=== PATIENT | male | born 1945 | race Caucasian/White ===

== ENCOUNTER → 2017-06-28 | Outpatient (CLI) | payer MEDICARE ==
--- NOTE | 2017-06-29 12:50 | BD ---
EXAMINATION TYPE: MG DEXA axial skeleton. DATE OF EXAM: 06/28/2017 COMPARISON: 06.11.2014 CLINICAL HISTORY: PT IS A 72 YR OLD MALE: ICD10 CODE: M81.8 OSTEOPOROSIS Height: 66.5 Weight: 166 FRAX RISK QUESTIONS: Alcohol (3 or more units per day): NO Family History (Parent hip fracture): NO Glucocorticoids (More than 3mos): NOT NOW (Ex: prednisone, prednisolone, methylprednisolone, dexamethasone, and hydrocortisone). History of Fracture in Adulthood: YES Secondary Osteoporosis: NO 1. Type 1 Diabetes: NO 2. Hyperthyroidism: NO 3. Menopause before 45: NA 4. Malnutrition: NO 5. Chronic liver disease: NO Rheumatoid Arthritis: NO Current Tobacco Use: NO RISK FACTORS HISTORY OF: Hip Fracture LT HIP AND LOWER LEG When: > 50 YRS OLD Spine Fracture: 5 COMPRESSION FX LUMBAR SPINE When: > 50 YRS OLD Surgery to LT HIP AND LOWER LEG When: > 50 YRS OLD Family History of Osteoporosis: NONE KNOWN Active: NO Diet low in dairy products/other sources of calcium: NO Lost more than 2 inches in height since high school: YES Poor Health: FRAGILE Hyperparathyroidism: NO Adrenal Insufficiency: NO MEDICATIONS: Prednisone or other steroids: STEROIDS FOR MANY YRS IN PAST, NONE NOW Osteoporosis Medications: FOR 3 YRS IN PAST FORTEO INJ., LAST USED 4 YRS AGO Additional Medications: HX OF CHEMO AND RADIATION TREATMENTS, PRILOSEC, CALCIUM AND VIT D Additional History: BONE MARROW TRANSPLANT, 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 System. HX OF COMPRESSION FXS, LUMBAR SPINE X4, SPINE NOT SCANNED Bone mineral density about the R hip (g/cm2): 0.749 T Score values are as follows: -----R Neck: -2.2 -----R Total: -2.1 Bone mineral density has: Increased 3.3% since study of: 06.11.2014 FRAX%'S: THERE IS A 22.8% CHANCE OF MAJOR OSTEOPOROTIC FX AND A 9.0% FOR HIP FX.....PROBABILITY OF FX IN 10 YRS TIME IMPRESSION: Osteopenia (T Score between -2.5 and -1 ) as noted by T score values with regards to the right femur There is slightly increased risk of fracture and the patient may be considered for treatment. Re-Screen 2-5 years. NOTE: T-SCORE=SD OF THE YOUNG ADULT MEAN.
== END ==
LOC: RADBDWWP 14:43
PROVIDERS: ATTEND Family Medicine
DX: M85.851 Other specified disorders of bone density and structure, right thigh (principal)
CPT/HCPCS: 77080

== ENCOUNTER → 2019-12-27 | Day surgery (SDC) | payer MEDICARE ==
[2019-12-24 13:35] VITALS: BMI 25.5
[~2019-12-27] MED LIST: ALFENTANIL 500 MCG/ML 2 ML AMP IV ONE; DEXAMETHASONE SOD PHOSPHATE 10 MG/ML 1 ML VIAL IV ONE; HYDROcodone/APAP 5-325MG 1 EACH TAB PO ONE; HYDROmorphone 0.5 MG/0.5 ML SYRINGE IVP PRN; LACTATED RINGERS 1,000 ML IV ONE; LACTATED RINGERS 1,000 ML IV SCH; LIDOCAINE 1% INJ 10MG/ML (20 ML MDV) ONE; LIDOCAINE 1%-EPI 1:100,000 20 ML VIAL SQ ONE; MIDAZOLAM 2 MG/2 ML VIAL ONE; ONDANSETRON 4 MG/2 ML VIAL IVP ONE; PROPOFOL 10 MG/ML 20 ML VIAL IV ONE; ROCURONIUM BROMIDE 10 MG/ML 5 ML VIAL IV ONE; SUCCINYLCHOLINE CHLORIDE 100 MG/5 ML SYR IV ONE; fentaNYL (PF) 50 MCG/ML 2 ML AMP ONE
[2019-12-27 07:13] LABS: Basophils # (A) 0.1 k/uL (0-0.2); Basophils % (A) 1 %; Eosinophils # (A) 0.6 k/uL (0-0.7); Eosinophils % (A) 4 %; HGB 13.8 gm/dL (13.0-17.5); Lymphocytes # (A) 3.4 k/uL (1.0-4.8); Lymphocytes % (A) 26 %; MCH 30.8 pg (25.0-35.0); MCHC 32.7 g/dL (31.0-37.0); MCV 94.2 fL (80.0-100.0); Mean Platelet Volume 7.9; Monocytes # (A) 1.4 k/uL (0-1.0); Monocytes % (A) 11 %; Neutrophils # (A) 7.3 k/uL (1.3-7.7); Neutrophils % (A) 55 %; Platelet Count 380 k/uL (150-450); RBC 4.46 m/uL (4.30-5.90); RDW 12.5 % (11.5-15.5); WBC 13.2 k/uL (3.8-10.6)
--- NOTE | 2019-12-27 12:09 | XR ---
Limited left elbow HISTORY: Open reduction internal fixation 2 intraoperative C-arm images document the procedure.
--- NOTE | 2019-12-27 12:10 | FL ---
Fluoroscopy HISTORY: Open reduction internal fixation left elbow 47 seconds fluoroscopy time supplied to the referring clinician. 2 intraoperative C-arm images docum ent the procedure. See dictated report from orthopedic surgery.
[2019-12-27 12:41] VITALS: TEMP 96.8
[2019-12-27 13:31] VITALS: RESP 16
[2019-12-27 14:08] VITALS: BP 140/65; PULSE 74
--- NOTE | 2019-12-30 11:22 | P.OP ---
Date of Procedure: 12/27/19 Preoperative Diagnosis: Displaced intra-articular left olecranon fracture Postoperative Diagnosis: Displaced intra-articular left olecranon fracture Procedure(s) Performed: Open reduction and internal fixation of displaced intra-articular left olecranon fracture Implants: Synthes VA-LCP left olecranon plate with locking and cortical screws Anesthesia: KENNETH Surgeon: Randolph Velasco Tile Roofer #1: Karen Narayan Estimated Blood Loss (ml): 20 Condition: stable Disposition: PACU Indications for Procedure: The patient is a pleasant 74-year-old [id number] male who sustained a displaced left olecranon fracture after falling off a plastic bucket. Treatment options (and associated risks and benefits) were discussed in the office. Surgical treatment was recommended. In preop, the patient denied any additional questions or concerns and wished to proceed with surgery. Consent forms were signed. The operative site was confirmed and marked. Description of Procedure: The patient was brought to the operating suite by the anesthesia team. General anesthesia and prophylactic IV antibiotics were administered uneventfully. The patient was positioned prone with the operative limb over a padded bolster. All bony prominences were well-padded. A tourniquet was placed on the left arm which was then prepped and draped in standard, sterile fashion. A timeout was performed, confirming patient identifiers, the operative side, the site and the procedure to be performed: all team members expressed agreement. The limb was exsanguinated with an Esmarch and the tourniquet was inflated. A midline posterior incision was marked over the proximal ulna, curving gently around the tip of the olecranon. The skin was incised sharply and full-thickness skin flaps were elevated, coagulating superficial vessels as needed. The subcutaneous border of the proximal ulna was palpated and the fracture site was identified. The periosteum was sharply incised and reflected to expose the fracture. The primary fracture line was quite oblique with some cortical bone loss medially as well as a paucity of cancellous bone. There was small free fragment of articular cartilage (about 1 cm in diameter), which was displaced and rotated. Its sparse remaining soft tissue attachments gave way easily. It did have a decent amount of subchondral bone still attached. The fragment was wrapped in moist gauze and placed on the back table. The fracture site was opened, irrigated and cleaned of hematoma and fibrous tissue. The articular fragment was carefully reduced into position and held with a dental pick. Two 0.028 crossed K wires were inserted to secure the fragment and were then advanced out the far cortex of the olecranon until flush with the articular surface. A small corticotomy was made in the proximal ulnar me taphysis to permit placement a clamp. The main fracture fragments were manually reduced and held with reduction clamps. However, the oblique fracture pattern led to displacement of the fracture. A 0.062 K wire was inserted into the proximal fragment and advanced up to the fracture line. The proximal fragment was manipulated with reduction clamps until satisfactory reduction was achieved (confirmed on imaging). The K wire was then advanced across the fracture site. An additional 0.054 K wire was inserted obliquely in a crossed fashion to provide rotational stability. The plate was selected based on the fracture pattern and the patient's anatomy. A longitudinal split was made in the triceps to allow the plate to sit against the bone. The muscle and fascia along the proximal ulna metaphysis were sharply elevated to expose the cortex. The plate was provisionally secured with reduction clamps. Provisional position and alignment of the plate and fracture were confirmed on orthogonal imaging. The plate was then reduced to the shaft with a whirlybird. A cortical screw was drilled, measured and inserted to secure the plate distally. Two 2.7 mm cortical screws were drilled perp endicularly across the fracture site. Two additional locking screws were drilled and inserted to secure the plate to the proximal fragment. An additional cortical screw was drilled and inserted to secure the plate to the metaphysis. The whirlybird was removed and replaced with a cortical screw. The bone quality was very good and all the screws obtained excellent purchase. All clamps and K wires were removed. Final x-rays were obtained, confirming fracture reduction and implant position. The screws appeared extra-articular. The elbow was then ranged under live fluoroscopy - no motion of the fracture fragments or fixation construct was appreciated. The elbow articulated smoothly without crepitus or instability. The joint and wound were thoroughly irrigated with normal saline. The triceps split was repaired with #1 Vicryl using interrupted [id number] stitches. The periosteum and fascia were repaired over the plate with interrupted 0 Vicryl sutures. The tourniquet was released after 121 minutes at 250 mmHg. Good hemostasis was obtained with manual pressure. The subcutaneous tissues were closed in layers with interrupted 0 Vicryl & 2-0 Vicryl sutures. The incision was closed with a running subcuticular absorbable suture (3-0 Stratafix). Steri-Strips were applied. Lidocaine with epinephrine was injected into the subcutaneous tissues for adjunct postoperative pain control and hemostasis. A sterile dressing was applied, followed by a long arm posterior splint. All sponge, needle and instrument counts were correct at the end of the case. The patient tolerated the procedure well and was taken to the recovery room in stable condition.
== END | disposition home or self-care (01) ==
LOC: OR 06:20
PROVIDERS: ATTEND Orthopaedic Surgery
DX: S52.032A Displaced fracture of olecranon process with intraarticular extension of left ulna, initial encounter for closed fracture (principal); K21.9 Gastro-esophageal reflux disease without esophagitis; Z79.899 Other long term (current) drug therapy; Z90.49 Acquired absence of other specified parts of digestive tract; Z90.81 Acquired absence of spleen; Z94.81 Bone marrow transplant status; Z85.6 Personal history of leukemia; Z79.82 Long term (current) use of aspirin; Z97.3 Presence of spectacles and contact lenses; W17.89XA Other fall from one level to another, initial encounter
CPT/HCPCS: 93005; 85025; 73070; 24685; C1713; J2250; J1100; J0690; J2405; J2001; J3010; J0330; J2704

== ENCOUNTER 2022-02-01 13:30 | Inpatient (IN) | payer MEDICARE ==
[2022-02-01] MEDS ORDERED: SODIUM CHLORIDE 0.9% 1,000 ML IV STA (15:54)
[2022-02-01 16:28] LABS: Basophils % (A) 0 %; Eosinophils # (A) 0.1 k/uL (0-0.7); Eosinophils % (A) 1 %; HCT 45.6 % (39.0-53.0); HGB 14.6 gm/dL (13.0-17.5); Lymphocytes # (A) 2.8 k/uL (1.0-4.8); Lymphocytes % (A) 24 %; MCH 31.4 pg (25.0-35.0); MCHC 32.1 g/dL (31.0-37.0); MCV 97.9 fL (80.0-100.0); Mean Platelet Volume 8.6; Monocytes # (A) 0.9 k/uL (0-1.0); Monocytes % (A) 8 %; Neutrophils # (A) 7.7 k/uL (1.3-7.7); Neutrophils % (A) 66 %; Platelet Count 428 k/uL (150-450); RBC 4.65 m/uL (4.30-5.90); RDW 12.9 % (11.5-15.5); WBC 11.7 k/uL (3.8-10.6)
[2022-02-01 16:31] LABS: ALT 24 U/L (4-49); African American GFR (CKD) >90 (>60 ml/min/1.73 sqM); Albumin 4.6 g/dL (3.5-5.0); Amylase 107 U/L (30-110); Anion Gap 10 mmol/L; Blood Urea Nitrogen 15 mg/dL (9-20); Calcium 9.5 mg/dL (8.4-10.2); Carbon Dioxide 25 mmol/L (22-30); Chloride 102 mmol/L (98-107); Glucose 100 mg/dL (74-99); Lipase 115 U/L (23-300); Non-African American GFR(CKD) 86 (>60 ml/min/1.73 sqM); Sodium 137 mmol/L (137-145); Total Bilirubin 0.8 mg/dL (0.2-1.3); Total Protein 7.1 g/dL (6.3-8.2)
[2022-02-01 16:34] LABS: Partial Thromboplastin Time 24.7 sec (22.0-30.0); Prothrombin Time 10.5 sec (9.0-12.0)
[2022-02-01 16:37] LABS: AST 39 U/L (17-59); Alkaline Phosphatase 99 U/L (38-126); Potassium 4.9 mmol/L (3.5-5.1)
[2022-02-01 16:41] LABS: Appearance,Urine Clear (Clear); Bilirubin,Urine Negative (Negative); Blood,Urine Negative (Negative); Color,Urine Yellow; Glucose,Urine (UA) Negative (Negative); Ketones,Urine Negative (Negative); Leukocyte Esterase,Urine Negative (Negative); Nitrite,Urine Negative (Negative); Protein,Urine Trace (Negative); Specific Gravity,Urine 1.015 (1.001-1.035); Urobilinogen,Urine <2.0 mg/dL (<2.0)
--- NOTE | 2022-02-01 18:13 | CT ---
EXAMINATION TYPE: CT abdomen pelvis w con DATE OF EXAM: 02/01/2022 COMPARISON: None HISTORY: abd pain CT DLP: 786.9 mGycm Automated exposure control for dose reduction was used. CONTRAST: Performed with IV Contrast, patient injected with 100 mL of Isovue 300. Images obtained from the diaphragm to the floor the pelvis with IV contrast. There is a mild to moderate right pleural effusion. Heart size is normal. No pericardial effusion. Th ere is some atelectasis in the right lower lobe adjacent to the pleural fluid. Left lung base is fitz r. Liver is intact. Spleen is absent. Stomach is intact. There is no pancreatic mass. Gallbladder appear s absent. Common bile duct is enlarged and measures 1.7 cm. No dilation of the intrahepatic bile duct s. There is no adrenal mass. Kidneys show satisfactory contrast opacification. There is no hydronephrosi s. There is a 6 mm calculus lower pole left kidney. There is probably a 3 mm calculus in the posterio r right kidney. Ureters are not dilated. There is no retroperitoneal adenopathy. Bladder distends smo othly. There is no inguinal hernia. There is left hip nailing. Hip joint spaces are fairly normal. Th ere are multiple sigmoid diverticula. No diverticulitis. Bladder distends smoothly. There is osteopenia. There is compression deformities of multiple vertebral and more noticeable at L2 and L1 and T12 up to 60%. There is T11 compression 20%. The bony pelvis is intact. There is left hip nailing. Hip joint spaces are fairly normal. There are multiple dilated air and fluid-filled small bowel loops throughout the abdomen. Appendix ap pears normal. Small bowel measures up to 3.3 cm. Transition point not seen. There is fluid distention of the terminal ileum. There is no ascites or free air. IMPRESSION: Multiple mildly dilated small bowel loops with fluid levels suggestive of ileus. Splenectomy. Right pleural effusion with probably some loculation with right basilar atelectasis. Colonic diverticulosis without diverticulitis. Normal appendix.
[2022-02-01] MEDS ORDERED: SODIUM CHLORIDE 0.9% 1,000 ML IV ONE (18:34)
[2022-02-01] MEDS ORDERED: KETOROLAC 15 MG/ML 1 ML VIAL IVP STA (18:45)
--- NOTE | 2022-02-01 19:46 | ED ---
Abdominal Pain HPI - General Chief Complaint: Abdominal Pain Stated Complaint: abd pain Time Seen by Provider: 02/01/22 15:19 Source: patient Mode of arrival: ambulatory - History of Present Illness Initial Comments: Patient is a 76-year-old male presenting with chief complaint of abdominal cramping. Patient states that symptoms started yesterday after eating dinner, states that the cramping is located primarily in the bilateral lower quadrants. He has felt nauseous but has not vomited. Patient has not eaten today, he has been able to take in fluids. States that the pain is worse when he is up and walking. Patient had one episode of diarrhea. No hematochezia or melena. Patient has a history of bowel obstruction. Denies any fever, chills, chest pain, shortness of breath, palpitations, weakness, dysuria, hematuria, urgency, frequency. - Related Data Home Medications Medication Instructions Recorded Confirmed Aspirin 325 mg PO DAILY 12/24/19 02/01/22 Multivit-Min/FA/Lycopen/Lutein 1 tab PO DAILY 12/24/19 02/01/22 [Centrum Silver Tablet] Omeprazole [PriLOSEC] 20 mg PO DAILY 12/24/19 02/01/22 Penicillin V Potassium [Pen Vee K] 250 mg PO BID 12/24/19 02/01/22 Calcium Carbonate [Calcium] 600 mg PO DAILY 02/01/22 02/01/22 Dorzolamide/Timolol/Pf 1 drop BOTH EYES BID 02/01/22 02/01/22 [Dorzolamide 2%-Timolol 0.5%] Erythromycin Ophth Oint [Romycin 0.25 inch RIGHT EYE BID 02/01/22 02/01/22 Ophth Oint] Latanoprost/Pf [Latanoprost 0.005% 1 drop BOTH EYES HS 02/01/22 02/01/22 Eye Drop] prednisoLONE ACETATE 1% OPHTH 1 drop LEFT EYE DAILY 02/01/22 02/01/22 [Pred Forte 1%] prednisoLONE ACETATE 1% OPHTH 2 drops RIGHT EYE DAILY 02/01/22 02/01/22 [Pred Forte 1%] Allergies Allergy/AdvReac Type Severity Reaction Status Date / Time No Known Allergies Allergy Verified 02/01/22 17:44 Review of Systems ROS Statement: Those systems with pertinent positive or pertinent negative responses have been documented in the HPI. ROS Other: All systems not noted in ROS Statement are negative. 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, leukemia, fx left elbow 12/23/19 History of Any Multi-Drug Resistant Organisms: None Reported Past Surgical History: Bowel Resection, Cholecystectomy, Orthopedic Surgery Additional Past Surgical History / Comment(s): bone marrow transplant 2006, spleenectomy, surgery left hip after injury Past Anesthesia/Blood Transfusion Reactions: No Reported Reaction Past Psychological History: No Psychological Hx Reported Past Alcohol Use History: Daily Past Drug Use History: None Reported - Past Family History Father Family Medical History: Cancer Mother Family Medical History: Cancer Brother(s) Family Medical History: Cancer General Exam Limitations: no limitations General appearance: alert, in no apparent distress Head exam: Present: atraumatic, normocephalic, normal inspection Eye exam: Present: normal appearance, EOMI. Absent: scleral icterus Neck exam: Present: normal inspection Respiratory exam: Present: normal lung sounds bilaterally. Absent: respiratory distress, wheezes, rales, rhonchi, stridor Cardiovascular Exam: Present: regular rate, normal rhythm, normal heart sounds. Absent: systolic murmur, diastolic murmur, rubs, gallop, clicks GI/Abdominal exam: Present: soft, tenderness (Diffuse), normal bowel sounds. Absent: distended, guarding, rebound, rigid Neurological exam: Present: alert, oriented X3, CN II-XII intact Psychiatric exam: Present: normal affect, normal mood Skin exam: Present: warm, dry, intact, normal color. Absent: rash Course Vital Signs 02/01/22 02/01/22 14:13 20:53 Temperature 97.7 F 97.6 F Pulse Rate 73 81 Respiratory 18 18 Rate Blood Pressure 121/76 158/69 O2 Sat by Pulse 97 98 Oximetry Medical Decision Making - Medical Decision Making Patient is a 76-year-old male presenting with chief complaint of lower abdominal cramping. Symptoms began yesterday after eating dinner. He has had one episode of diarrhea. On examination there is diffuse abdominal tenderness, it is soft and nondistended. Lab work shows slight leukocytosis with WBC of 11.7. CT of the abdomen and pelvis shows ileus. There is also colonic diverticulosis without diverticulitis. Normal appendix. Patient was given IV fluids and Toradol. Patient states that once he gets up and walks around the pain returns, and is concerned that if discharged home he may report back to ER due to the pain. Patient would benefit from observation stay with fluids and pain control. I spoke with Rashawn Sheridan from [facility] agreed to admit the patient. Patient was agreeable to the plan. I discussed this case with my attending Dr. Santoyo. - Lab Data Result diagrams: 02/01/22 16:02 02/01/22 16:02 Lab Results 02/01/22 02/01/22 02/01/22 Range/Units 16:02 16:02 16:02 WBC 11.7 H (3.8-10.6) k/uL RBC 4.65 (4.30-5.90) m/uL Hgb 14.6 (13.0-17.5) gm/dL Hct 45.6 (39.0-53.0) % MCV 97.9 (80.0-100.0) fL MCH 31.4 (25.0-35.0) pg MCHC 32.1 (31.0-37.0) g/dL RDW 12.9 (11.5-15.5) % Plt Count 428 (150-450) k/uL MPV 8.6 Neutrophils % 66 % Lymphocytes % 24 % Monocytes % 8 % Eosinophils % 1 % Basophils % 0 % Neutrophils # 7.7 (1.3-7.7) k/uL Lymphocytes # 2.8 (1.0-4.8) k/uL Monocytes # 0.9 (0-1.0) k/uL Eosinophils # 0.1 (0-0.7) k/uL Basophils # 0.0 (0-0.2) k/uL PT 10.5 (9.0-12.0) sec INR 1.0 (<1.2) APTT 24.7 (22.0-30.0) sec Sodium 137 (137-145) mmol/L Potassium 4.9 (3.5-5.1) mmol/L Chloride 102 (98-107) mmol/L Carbon Dioxide 25 (22-30) mmol/L Anion Gap 10 mmol/L BUN 15 (9-20) mg/dL Creatinine 0.83 (0.66-1.25) mg/dL Est GFR (CKD-EPI)AfAm >90 (>60 ml/min/1.73 sqM) Est GFR (CKD-EPI)NonAf 86 (>60 ml/min/1.73 sqM) Glucose 100 H (74-99) mg/dL Plasma Lactic Acid Nrom (0.7-2.0) mmol/L Calcium 9.5 (8.4-10.2) mg/dL Total Bilirubin 0.8 (0.2-1.3) mg/dL AST 39 (17-59) U/L ALT 24 (4-49) U/L Alkaline Phosphatase 99 (38-126) U/L Troponin I (0.000-0.034) ng/mL Total Protein 7.1 (6.3-8.2) g/dL Albumin 4.6 (3.5-5.0) g/dL Amylase 107 (30-110) U/L Lipase 115 (23-300) U/L Urine Color Urine Appearance (Clear) Urine pH (5.0-8.0) Ur Specific Marble (1.001-1.035) Urine Protein (Negative) Urine Glucose (UA) (Negative) Urine Ketones (Negative) Urine Blood (Negative) Urine Nitrite (Negative) Urine Bilirubin (Negative) Urine Urobilinogen (<2.0) mg/dL Ur Leukocyte Esterase (Negative) 02/01/22 02/01/22 02/01/22 Range/Units 16:02 16:02 16:26 WBC (3.8-10.6) k/uL RBC (4.30-5.90) m/uL Hgb (13.0-17.5) gm/dL Hct (39.0-53.0) % MCV (80.0-100.0) fL MCH (25.0-35.0) pg MCHC (31.0-37.0) g/dL RDW (11.5-15.5) % Plt Count (150-450) k/uL MPV Neutrophils % % Lymphocytes % % Monocytes % % Eosinophils % % Basophils % % Neutrophils # (1.3-7.7) k/uL Lymphocytes # (1.0-4.8) k/uL Monocytes # (0-1.0) k/uL Eosinophils # (0-0.7) k/uL Basophils # (0-0.2) k/uL PT (9.0-12.0) sec INR (<1.2) APTT (22.0-30.0) sec Sodium (137-145) mmol/L Potassium (3.5-5.1) mmol/L Chloride (98-107) mmol/L Carbon Dioxide (22-30) mmol/L Anion Gap mmol/L BUN (9-20) mg/dL Creatinine (0.66-1.25) mg/dL Est GFR (CKD-EPI)AfAm (>60 ml/min/1.73 sqM) Est GFR (CKD-EPI)NonAf (>60 ml/min/1.73 sqM) Glucose (74-99) mg/dL Plasma Lactic Acid Norm 1.2 (0.7-2.0) mmol/L Calcium (8.4-10.2) mg/dL Total Bilirubin (0.2-1.3) mg/dL AST (17-59) U/L ALT (4-49) U/L Alkaline Phosphatase (38-126) U/L Troponin I <0.012 (0.000-0.034) ng/mL Total Protein (6.3-8.2) g/dL Albumin (3.5-5.0) g/dL Amylase (30-110) U/L Lipase (23-300) U/L Urine Color Yellow Urine Appearance Clear (Clear) Urine pH 6.0 (5.0-8.0) Ur Specific Marble 1.015 (1.001-1.035) Urine Protein Trace H (Negative) Urine Glucose (UA) Negative (Negative) Urine Ketones Negative (Negative) Urine Blood Negative (Negative) Urine Nitrite Negative (Negative) Urine Bilirubin Negative (Negative) Urine Urobilinogen <2.0 (<2.0) mg/dL Ur Leukocyte Esterase Negative (Negative) Disposition Clinical Impression: Ileus Disposition: ADMITTED IP TO THIS [facility] Condition: Good Time of Disposition: 19:46 Decision to Admit Reason: Admit from EC Decision Date: 02/01/22 Decision Time: 19:46
[2022-02-01] MEDS ORDERED: KETOROLAC 15 MG/ML 1 ML VIAL IVP PRN (20:09)
[2022-02-01] MEDS ORDERED: NALOXONE 0.4 MG/ML 1 ML VIAL IV PRN (20:09)
[2022-02-01] MEDS ORDERED: MORPHINE SULFATE 4 MG/ML SYRINGE IV PRN (20:09)
[2022-02-02] MEDS: SODIUM CHLORIDE 0.9% 1,000 ML IV SCH ×3 (07:35→15:41)
[2022-02-02] MEDS ORDERED: prednisoLONE ACETATE 1% OPHTH DROPS 5 ML BTL LEFT EYE SCH (09:00)
[2022-02-02] MEDS: DORZOLAMIDE-TIMOLOL 2.23%/0.68 10ML BTL BOTH EYES SCH ×2 (10:00→20:22)
[2022-02-02] MEDS: prednisoLONE ACETATE 1% OPHTH DROPS 5 ML BTL RIGHT EYE SCH (10:01)
[2022-02-02] MEDS: ERYTHROMYCIN 5 MG/GM OPHTH OINT 3.5 GM TUBE RIGHT EYE SCH ×2 (10:01→20:24)
--- NOTE | 2022-02-02 13:59 | P.GSCN ---
History of Present Illness Consult date: 02/02/22 History of present illness: CHIEF COMPLAINT: Abdominal pain HISTORY OF PRESENT ILLNESS: This is a 76-year-old male who presented to the hospital with complaints of lower abdominal pain. He reports pain started after he ate [place] salad for dinner. He reports the pain got up to about 8 out of 10. Patient reports that his bowel movements have been normal. And then last night around 9:00 he started having multiple episodes of diarrhea. This morning his pain is completely resolved. He has been tolerating clear liquids. Patient does have history of 2 other bowel obstructions. He did require a bowel resection at [facility] about 15 years ago and then 12 years ago had recurrent spelled suction that was treated conservatively. Other surgical history includes cholecystectomy and splenectomy. 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 He had the splenectomy for the transplant. He denies any fever chills or sweats. Computed tomography scan abdomen and pelvis had shown multiple mildly dilated small bowel loops with fluid levels suggestive of ileus. Patient seen and examined with Dr. Forbes PAST MEDICAL HISTORY: See list. PAST SURGICAL HISTORY: As stated above MEDICATIONS: See list. ALLERGIES: See list. SOCIAL HISTORY: No illicit drug use. REVIEW OF SYSTEMS: CONSTITUTIONAL: Denies fever or chills. HEENT: Denies blurred vision, vision changes, or eye pain. Denies hemoptysis CARDIOVASCULAR: Denies chest pain or pressure. RESPIRATORY: No shortness of breath. GASTROINTESTINAL: See HPI for pertinent findings HEMATOLOGIC: Denies bleeding disorders. GENITOURINARY: Denies any blood in urine or increased urinary frequency. SKIN: Denies pruitis. Denies rash. PHYSICAL EXAM: VITAL SIGNS: Reviewed GENERAL: Well-developed in no acute distress. HEENT: No sclera icterus. Extraocular movements grossly intact. Moist buccal mucosa. Head is atraumatic, normocephalic. No nasal drainage. ABDOMEN: Soft. Nondistended. Nontender NEUROLOGIC: Alert and oriented. Cranial nerves II through XII grossly intact. LABORATORY DATA: WBC 11.7 hemoglobin 14.6 platelets 428 INR 1.0 Sodium is 137 potassium is 4.9 BUN is 15 creatinine 0.83 Lactic acid 1.2 LFTs normal Troponin negative Lipase 115 Urinalysis negative for infection IMAGING: Computed tomography scan abdomen and pelvis had shown multiple mildly dilated small bowel loops with fluid levels suggestive of ileus. Splenectomy. Right pleural effusion with probably some loculation with right basilar atelectasis. Colonic diverticulosis without diverticulitis. Normal appendix. ASSESSMENT: 1. Abdominal pain likely due to ileus 2. Prior history of bowel obstructions when treated conservatively and 1 requiring surgical intervention PLAN: -No surgical intervention planned -Advance diet to full liquids -Continue supportive care -Continue to monitor Thank you for this consultation Physician Mill Representative note has been reviewed by physician. Signing provider agrees with the documented findings, assessment, and plan of care. 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, leukemia, fx left elbow 12/23/19 History of Any Multi-Drug Resistant Organisms: None Reported Past Surgical History: Bowel Resection, Cholecystectomy, Orthopedic Surgery Additional Past Surgical History / Comment(s): bone marrow transplant 2006, spleenectomy, surgery left hip after injury Past Anesthesia/Blood Transfusion Reactions: No Reported Reaction Past Psychological History: No Psychological Hx Reported Smoking Status: Never smoker Past Alcohol Use History: Daily Additional Past Alcohol Use History / Comment(s): 1 beer daily Past Drug Use History: None Reported - Past Family History Father Family Medical History: Cancer Mother Family Medical History: Cancer Brother(s) Family Medical History: Cancer Medications and Allergies Home Medications Medication Instructions Recorded Confirmed Type Aspirin 325 mg PO DAILY 12/24/19 02/01/22 History Multivit-Min/FA/Lycopen/Lutein 1 tab PO DAILY 12/24/19 02/01/22 History [Centrum Silver Tablet] Omeprazole [PriLOSEC] 20 mg PO DAILY 12/24/19 02/01/22 History Penicillin V Potassium [Pen Vee K] 250 mg PO BID 12/24/19 02/01/22 History Calcium Carbonate [Calcium] 600 mg PO DAILY 02/01/22 02/01/22 History Dorzolamide/Timolol/Pf 1 drop BOTH EYES BID 02/01/22 02/01/22 History [Dorzolamide 2%-Timolol 0.5%] Erythromycin Ophth Oint [Romycin 0.25 inch RIGHT EYE BID 02/01/22 02/01/22 History Ophth Oint] Latanoprost/Pf [Latanoprost 0.005% 1 drop BOTH EYES HS 02/01/22 02/01/22 History Eye Drop] prednisoLONE ACETATE 1% OPHTH 1 drop LEFT EYE DAILY 02/01/22 02/01/22 History [Pred Forte 1%] prednisoLONE ACETATE 1% OPHTH 2 drops RIGHT EYE DAILY 02/01/22 02/01/22 History [Pred Forte 1%] Allergies Allergy/AdvReac Type Severity Reaction Status Date / Time No Known Allergies Allergy Verified 02/01/22 17:44 Surgical - Exam Vital Signs Temp Pulse Resp BP Pulse Ox 97.7 F 73 18 121/76 97 02/01/22 14:13 02/01/22 14:13 02/01/22 14:13 02/01/22 14:13 02/01/22 14:13 Results - Labs 02/01/22 16:02 02/01/22 16:02 Abnormal Lab Results - Last 24 Hours (Table) 02/01/22 02/01/22 02/01/22 Range/Units 16:02 16:02 16:26 WBC 11.7 H (3.8-10.6) k/uL Glucose 100 H (74-99) mg/dL Urine Protein Trace H (Negative) Diabetes panel 02/01/22 Range/Units 16:02 Sodium 137 (137-145) mmol/L Potassium 4.9 (3.5-5.1) mmol/L Chloride 102 (98-107) mmol/L Carbon Dioxide 25 (22-30) mmol/L BUN 15 (9-20) mg/dL Creatinine 0.83 (0.66-1.25) mg/dL Glucose 100 H (74-99) mg/dL Calcium 9.5 (8.4-10.2) mg/dL AST 39 (17-59) U/L ALT 24 (4-49) U/L Alkaline Phosphatase 99 (38-126) U/L Total Protein 7.1 (6.3-8.2) g/dL Albumin 4.6 (3.5-5.0) g/dL Calcium panel 02/01/22 Range/Units 16:02 Calcium 9.5 (8.4-10.2) mg/dL Albumin 4.6 (3.5-5.0) g/dL Pituitary panel 02/01/22 Range/Units 16:02 Sodium 137 (137-145) mmol/L Potassium 4.9 (3.5-5.1) mmol/L Chloride 102 (98-107) mmol/L Carbon Dioxide 25 (22-30) mmol/L BUN 15 (9-20) mg/dL Creatinine 0.83 (0.66-1.25) mg/dL Glucose 100 H (74-99) mg/dL Calcium 9.5 (8.4-10.2) mg/dL Adrenal panel 02/01/22 Range/Units 16:02 Sodium 137 (137-145) mmol/L Potassium 4.9 (3.5-5.1) mmol/L Chloride 102 (98-107) mmol/L Carbon Dioxide 25 (22-30) mmol/L BUN 15 (9-20) mg/dL Creatinine 0.83 (0.66-1.25) mg/dL Glucose 100 H (74-99) mg/dL Calcium 9.5 (8.4-10.2) mg/dL Total Bilirubin 0.8 (0.2-1.3) mg/dL AST 39 (17-59) U/L ALT 24 (4-49) U/L Alkaline Phosphatase 99 (38-126) U/L Total Protein 7.1 (6.3-8.2) g/dL Albumin 4.6 (3.5-5.0) g/dL
--- NOTE | 2022-02-02 14:06 | P.CONS ---
History of Present Illness - Reason for Consult Consult date: 02/02/22 Diarrhea, ileus Requesting physician: Akil Banda - Chief Complaint Abdominal pain - History of Present Illness This is a pleasant 76-year-old male who presented to the emergency department yesterday with complaints of severe abdominal pain. States the pain started Tue and continued into Tuesday so he came to the emergency department for further evaluation. Has a past medical history including leukemia, GERD, and previous small bowel obstruction with resection in 2006. States he had no associated nausea or vomiting. Diarrhea started yesterday and since yesterday evening he still had 8 loose bowel movements which she states now her more watery, nonbloody. Only 1-2 bowel movements today he states no previous history of diarrhea. Denies any new medications, no rectal bleeding, and continues with no nausea or vomiting. States abdominal pain has improved significantly today and rates it a 1. Last colonoscopy was greater than 5 years ago. Gastroenterology was consulted for diarrhea, ileus. Gen. surgery also on consult for possible small bowel obstruction. Labs: WBC 11.7 hemoglobin 14.6 hematocrit 45.6 platelet count 428,019 and 1.0 Sodium 137 potassium 4.9 BUN 15 creatinine 0.8 glucose 100 total bilirubin 0.8 AST 39 ALT 24 alkaline phosphatase [address] abdomen and pelvis: Multiple mildly dilated small bowel loops with fluid levels suggestive of ileus. Splenectomy. Right pleural effusion with probab some loculation with right basilar atelectasis. Colonic diverticulosis without diverticulitis. Normal appendix.ly Review of Systems REVIEW OF SYSTEMS: CARDIOPULMONARY: No chest pain or shortness of breath. Gastrointestinal: Diffuse abdominal pain, mostly in bilateral lower quadrants. Now improved. No nausea or vomiting. No hematemesis, coffee-ground emesis. No rectal bleeding, or melena. Diarrhea. GENITOURINARY: No dysuria or hematuria. MUSCULOSKELETAL: Reports normal range of motion. SKIN: No rashes. No jaundice. ENDOCRINE: No chills, fevers. No excessive weight gain or loss. No polydipsia or polyuria. PSYCHIATRIC: Unremarkable. NEUROLOGY: No change in mental status. Denies dizziness, headache. ENT: Vision unremarkable. CONSTITUTIONAL: No recent weight loss. No fever, chills, night sweats. 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, leukemia, fx left elbow 12/23/19 History of Any Multi-Drug Resistant Organisms: None Reported Past Surgical History: Bowel Resection, Cholecystectomy, Orthopedic Surgery Additional Past Surgical History / Comment(s): bone marrow transplant 2006, spleenectomy, surgery left hip after injury Past Anesthesia/Blood Transfusion Reactions: No Reported Reaction Past Psychological History: No Psychological Hx Reported Smoking Status: Never smoker Past Alcohol Use History: Daily Additional Past Alcohol Use History / Comment(s): 1 beer daily Past Drug Use History: None Reported - Past Family History Father Family Medical History: Cancer Mother Family Medical History: Cancer Brother(s) Family Medical History: Cancer Medications and Allergies Home Medications Medication Instructions Recorded Confirmed Type Aspirin 325 mg PO DAILY 12/24/19 02/01/22 History Multivit-Min/FA/Lycopen/Lutein 1 tab PO DAILY 12/24/19 02/01/22 History [Centrum Silver Tablet] Omeprazole [PriLOSEC] 20 mg PO DAILY 12/24/19 02/01/22 History Penicillin V Potassium [Pen Vee K] 250 mg PO BID 12/24/19 02/01/22 History Calcium Carbonate [Calcium] 600 mg PO DAILY 02/01/22 02/01/22 History Dorzolamide/Timolol/Pf 1 drop BOTH EYES BID 02/01/22 02/01/22 History [Dorzolamide 2%-Timolol 0.5%] Erythromycin Ophth Oint [Romycin 0.25 inch RIGHT EYE BID 02/01/22 02/01/22 History Ophth Oint] Latanoprost/Pf [Latanoprost 0.005% 1 drop BOTH EYES HS 02/01/22 02/01/22 History Eye Drop] prednisoLONE ACETATE 1% OPHTH 1 drop LEFT EYE DAILY 02/01/22 02/01/22 History [Pred Forte 1%] prednisoLONE ACETATE 1% OPHTH 2 drops RIGHT EYE DAILY 02/01/22 02/01/22 History [Pred Forte 1%] Allergies Allergy/AdvReac Type Severity Reaction Status Date / Time No Known Allergies Allergy Verified 02/01/22 17:44 Physical Exam Vitals: Vital Signs Temp Pulse Pulse Resp BP BP Pulse Ox 02/02/22 07:22 97.5 F L 64 20 114/74 97 02/02/22 02:00 97.7 F 72 17 137/77 97 02/02/22 00:07 78 18 120/74 98 02/01/22 20:53 97.6 F 81 18 158/69 98 02/01/22 14:13 97.7 F 73 18 121/76 97 Intake and Output 02/01/22 02/02/22 02/02/22 22:59 06:59 14:59 Intake Total 400 Balance 400 Intake: Intake, IV Titration 300 Amount Sodium Chloride 0.9% 1, 300 000 ml @ 75 mls/hr IV . [id number] [facility] Rx#:[id number] Oral 100 Other: Voiding Method Toilet # Voids 3 # Bowel Movements 1 Weight 69.853 kg General appearance: The patient is alert, oriented, appears in no acute distress. HET: Head is normocephalic and atraumatic. Conjunctiva pink. Sclera anicteric. Neck: Supple without lymphadenopathy. Trachea midline. Heart: S1 S2. Regular rate and rhythm. Lungs: Clear to auscultation. Abdomen: Soft, nontender, nondistended with bowel sounds. No guarding or rigidity. Skin: No rashes. No jaundice. Extremities: Normal skin color and turgor. No pedal edema. Neurological: No focal deficits. Alert and oriented x3. Results CBC & Chem 7: 02/01/22 16:02 02/01/22 16:02 Labs: Abnormal Lab Results - Last 24 Hours (Table) 02/01/22 02/01/22 02/01/22 Range/Units 16:02 16:02 16:26 WBC 11.7 H (3.8-10.6) k/uL Glucose 100 H (74-99) mg/dL Urine Protein Trace H (Negative) Comments: CT abdomen and pelvis: Multiple mildly dilated small bowel loops with fluid levels suggestive of ileus. Splenectomy. Right pleural effusion with probab some loculation with right basilar atelectasis. Colonic diverticulosis without diverticulitis. Normal appendix.ly Assessment and Plan (1) Diarrhea Narrative/Plan: 76-year-old male who presented to the emergency department yesterday with complaints of severe abdominal pain. States pain started on Tuesday improved now. However yesterday he started having multiple loose bowel movements. He states that initially they were soft but had turned into watery stools. Nonbloody. No previous history of diarrhea. He does have a history of a small bowel obstruction with bowel resection 2006. Denies any recent antibiotics or new medications. Abdominal pain has improved and states it is a 1 at this time. He's been afebrile. CT of the abdomen and pelvis showed multiple loops of small bowel dilated with fluid levels suggestive of ileus. Diarrhea is improving. Abdominal pain improved. Stool studies ordered. No plans and endoscopic evaluation. Continue to treat symptomatically. Current Visit: Yes Status: Acute Code(s): R19.7 - DIARRHEA, UNSPECIFIED SNOMED Code(s): 65174873 (2) Ileus Current Visit: Yes Status: Acute Code(s): K56.7 - ILEUS, UNSPECIFIED SNOMED Code(s): 255532419 Plan: 1. Continue symptomatic and supportive care 2. Diet per general surgery recommendations 3. Stool studies ordered 4. Unclear etiology of diarrhea, likely related to contrast/medications. However infectious diarrhea needs to be considered. Stool studies ordered 5. No plans on endoscopic evaluation. Thank you for this consultation. Thank you for allowing us to participate in the care of the patient, the GI service will sign off, gastroenterology will not be available at the hospital this weekend and through next week. If further evaluation by gastroenterology is required the patient will need transfer as per the primary team's discretion. Dr. Kirk Larkin I agree with the dictator's note, documented as a scribe by Anel Bowling.
--- NOTE | 2022-02-02 18:37 | P.HPIM ---
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 He denies any nausea vomiting but reports diarrhea all night about 8 bowel sounds movement last night with no blood, last bowel movement was 7:00 t his morning. Patient denies any chest pain or dyspnea He denies smoking but drinks 1-2 beers about 4 days a week, no illicit drugs. He states that he follows up with Him on [facility] for His Chronic Leukemia but since Covid He Stopped Following up, Patient Denies Any Specific Symptoms Recorded. Also Patient States That He Is Following up with [facility] for Right Corneal Ulcers for More Than a Year, His [facility] Is Dr. Nguyen Was Recently Seen Him A Few Days Ago, He Is on Multiple Eyedrops, Please Refer to Medication List. Also his rn labor and delivery referred him to another colleague as an outpatient. Hemodynamically stable and patient is afebrile. That showed mild leukocytosis of 11.7, rest of CBC, BMP, liver enzymes and urine analysis and troponin are unremarkable. EKG showing normal sinus rhythm at [address]-T changes and sinus arrhythmia CT of the abdomen and pelvis with contrast: Mild to moderate right pleural effusion. Atelectasis., 6 mm calculus in the left lower kidney pole. Multiple dilated air and fluid small bowel loops throughout the abdomen. Patient given pain medication and IV fluids, currently on liquid diet Review of Systems CONSTITUTIONAL: No fever, no malaise, no fatigue. HEENT: No recent visual problems or hearing problems. Denied any sore throat. CARDIOVASCULAR: No orthopnea, PND, no palpitations, no syncope. PULMONARY: No shortness of breath, no cough, no hemoptysis. GASTROINTESTINAL: No diarrhea, no nausea, no vomiting, no abdominal pain. Normoactive bowel sounds. NEUROLOGICAL: No headaches, no weakness, no numbness. HEMATOLOGICAL: Denies any bleeding or petechiae. GENITOURINARY: Denies any burning micturition, frequency, or urgency. MUSCULOSKELETAL/RHEUMATOLOGICAL: Denies any joint pain, swelling, or any muscle pain. ENDOCRINE: Denies any polyuria or polydipsia. 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, leukemia, fx left elbow 12/23/19 History of Any Multi-Drug Resistant Organisms: None Reported Past Surgical History: Bowel Resection, Cholecystectomy, Orthopedic Surgery Additional Past Surgical History / Comment(s): bone marrow transplant 2006, spleenectomy, surgery left hip after injury Past Anesthesia/Blood Transfusion Reactions: No Reported Reaction Past Psychological History: No Psychological Hx Reported Smoking Status: Never smoker Past Alcohol Use History: Daily Additional Past Alcohol Use History / Comment(s): 1 beer daily Past Drug Use History: None Reported - Past Family History Father Family Medical History: Cancer Mother Family Medical History: Cancer Brother(s) Family Medical History: Cancer Medications and Allergies Home Medications Medication Instructions Recorded Confirmed Type Aspirin 325 mg PO DAILY 12/24/19 02/01/22 History Multivit-Min/FA/Lycopen/Lutein 1 tab PO DAILY 12/24/19 02/01/22 History [Centrum Silver Tablet] Omeprazole [PriLOSEC] 20 mg PO DAILY 12/24/19 02/01/22 History Penicillin V Potassium [Pen Vee K] 250 mg PO BID 12/24/19 02/01/22 History Calcium Carbonate [Calcium] 600 mg PO DAILY 02/01/22 02/01/22 History Dorzolamide/Timolol/Pf 1 drop BOTH EYES BID 02/01/22 02/01/22 History [Dorzolamide 2%-Timolol 0.5%] Erythromycin Ophth Oint [Romycin 0.25 inch RIGHT EYE BID 02/01/22 02/01/22 History Ophth Oint] Latanoprost/Pf [Latanoprost 0.005% 1 drop BOTH EYES HS 02/01/22 02/01/22 History Eye Drop] prednisoLONE ACETATE 1% OPHTH 1 drop LEFT EYE DAILY 02/01/22 02/01/22 History [Pred Forte 1%] prednisoLONE ACETATE 1% OPHTH 2 drops RIGHT EYE DAILY 02/01/22 02/01/22 History [Pred Forte 1%] Allergies Allergy/AdvReac Type Severity Reaction Status Date / Time No Known Allergies Allergy Verified 02/01/22 17:44 Physical Exam Vitals: Vital Signs Temp Pulse Pulse Resp BP BP Pulse Ox 02/02/22 07:22 97.5 F L 64 20 114/74 97 02/02/22 02:00 97.7 F 72 17 137/77 97 02/02/22 00:07 78 18 120/74 98 02/01/22 20:53 97.6 F 81 18 158/69 98 02/01/22 14:13 97.7 F 73 18 121/76 97 Intake and Output 02/01/22 02/02/22 02/02/22 22:59 06:59 14:59 Intake Total 400 Balance 400 Intake: Intake, IV Titration 300 Amount Sodium Chloride 0.9% 1, 300 000 ml @ 75 mls/hr IV . [id number] Rx#:[id number] Oral 100 Other: # Voids 3 # Bowel Movements 1 Weight 69.853 kg GENERAL: The patient is alert and oriented x3, not in any acute distress. Well developed, well nourished. HEENT: Pupils are round and equally reacting to light. EOMI. No scleral icterus. No conjunctival pallor. Normocephalic, atraumatic. No pharyngeal erythema. No thyromegaly. CARDIOVASCULAR: S1 and S2 present. No murmurs, rubs, or gallops. PULMONARY: Chest is clear to auscultation, no wheezing or crackles. ABDOMEN: Soft, nontender, nondistended, normoactive bowel sounds. No palpable organomegaly. MUSCULOSKELETAL: No joint swelling or deformity. EXTREMITIES: No cyanosis, clubbing, or pedal edema. NEUROLOGICAL: Gross neurological examination did not reveal any focal deficits. SKIN: No rashes. No petechiae Results CBC & Chem 7: 02/01/22 16:02 02/01/22 16:02 Labs: Abnormal Lab Results - Last 24 Hours (Table) 02/01/22 02/01/22 02/01/22 Range/Units 16:02 16:02 16:26 WBC 11.7 H (3.8-10.6) k/uL Glucose 100 H (74-99) mg/dL Urine Protein Trace H (Negative) Thrombosis Risk Factor Assmnt - Choose All That Apply Each Risk Factor Represents 3 Points: Age 75 years or older Thrombosis Risk Factor Assessment Total Risk Factor Score: 3 Thrombosis Risk Factor Assessment Level: Moderate Risk Assessment and Plan Assessment: Small bowel obstruction versus ileus History of bowel obstruction in 2007 status post bowel resection. 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 He. With rn labor and delivery as an outpatient Plan: This is a pleasant 76 years old male who presents with ileus Continue with bowel rest, normal saline and pain management Surgery team consult Hold aspirin Check for C. diff, stool culture and WBC. Check procalcitonin GI team consult Labs and medication were reviewed.. Continue same treatment. Continue with symptomatic treatment. Resume home medication. Monitor lytes and vitals. DVT and GI prophylaxis. Further recommendations depends on the clinical course of the patient DVT prophylaxis: Subcutaneous heparin GI Prophylaxis: Pepcid PT/OT: Pending Prognosis is guarded
[2022-02-02] MEDS: FAMOTIDINE 20 MG/2 ML VIAL IV SCH (20:21)
[2022-02-02] MEDS: HEPARIN SODIUM,PORCINE/PF 5,000 UNIT/0.5 ML SYRINGE SQ SCH (20:21)
[2022-02-02] MEDS: prednisoLONE ACETATE 1% OPHTH DROPS 5 ML BTL LEFT EYE SCH (20:23)
[2022-02-02] MEDS: LATANOPROST 0.005% OPHTH DROPS 2.5 ML BTL BOTH EYES SCH (20:24)
--- NOTE | 2022-02-03 08:04 | XR ---
EXAMINATION TYPE: XR chest 1V DATE OF EXAM: 02/03/2022 COMPARISON: X-ray dated 01/07/2011 HISTORY: Shortness of breath TECHNIQUE: Single frontal view of the chest is obtained. FINDINGS: Hyperinflated hyper translucent lungs with flattened diaphragm suggesting COPD. Persistent loculated right-sided pleural effusion. No left-sided pleural effusion. No definite pneumothorax. Right apical pleural thickening. No gross cardiomegaly. Osteopenia with mul tilevel vertebral body collapse. IMPRESSION: As above.
[2022-02-03] MEDS: FAMOTIDINE 20 MG/2 ML VIAL IV SCH ×2 (08:36→20:04)
[2022-02-03] MEDS: DORZOLAMIDE-TIMOLOL 2.23%/0.68 10ML BTL BOTH EYES SCH ×2 (08:39→20:05)
[2022-02-03] MEDS: prednisoLONE ACETATE 1% OPHTH DROPS 5 ML BTL RIGHT EYE SCH (08:40)
[2022-02-03] MEDS: ERYTHROMYCIN 5 MG/GM OPHTH OINT 3.5 GM TUBE RIGHT EYE SCH ×2 (08:41→20:07)
[2022-02-03] MEDS: HEPARIN SODIUM,PORCINE/PF 5,000 UNIT/0.5 ML SYRINGE SQ SCH ×2 (09:03→20:03)
[2022-02-03 09:11] LABS: Basophils # (A) 0.03 X 10*3/uL (0.00-0.10); Basophils % (A) 0.3 %; Eosinophils # (A) 0.09 X 10*3/uL (0.04-0.35); Eosinophils % (A) 0.8 %; HCT 39.7 % (39.6-50.0); HGB 12.2 g/dL (13.0-17.0); Immature Grans, Automated 0.6 %; Lymphocytes # (A) 2.71 X 10*3/uL (0.90-5.00); Lymphocytes % (A) 25.5 %; MCH 30.1 pg (27.0-32.0); MCHC 30.7 g/dL (32.0-37.0); Mean Platelet Volume 10.3 fL (9.5-12.2); Monocytes # (A) 1.36 X 10*3/uL (0.20-1.00); Monocytes % (A) 12.8 %; NRBC Per 100 WBC 0 /100 WBCS (0.0-0.0); Neutrophils # (A) 6.37 X 10*3/uL (1.80-7.70); Platelet Count 418 X 10*3/uL (140-440); RBC 4.05 X 10*6/uL (4.40-5.60); RDW 13.1 % (11.5-14.5); WBC 10.62 X 10*3/uL (4.50-10.00)
[2022-02-03 10:08] LABS: African American GFR (CKD) 95.8 (60.0-200.0); Albumin 3.7 g/dL (3.8-4.9); Albumin/Globulin Ratio 1.76 (1.60-3.17); Anion Gap 11.4 mmol/L (10.00-18.00); BUN/Creat Ratio 14.56 Ratio (12.00-20.00); Blood Urea Nitrogen 13.1 mg/dL (9.0-27.0); Carbon Dioxide 20.6 mmol/L (20.0-27.5); Globulin 2.1 g/dL (1.6-3.3); Non-African American GFR(CKD) 82.7 (60.0-200.0); Potassium 4.5 mmol/L (3.5-5.5); Total Bilirubin 0.3 mg/dL (0.30-1.20); Total Protein 5.8 g/dL (6.2-8.2)
--- NOTE | 2022-02-03 13:50 | P.PN ---
Subjective Progress Note Date: 02/03/22 CHIEF COMPLAINT: Ileus HISTORY OF PRESENT ILLNESS: Patient's abdominal pain has resolved. He is having bowel movements. The diarrhea has decreased. Stool is more formed. Patient apparently had 1 episode of vomiting yesterday due to severe heartburn. This has resolved after antiacid medication was given. He is currently tolerating diet. Stool for C. diff was negative. WBC is down from 11.7-10.6-12.2 sodium 141 potassium 4.5 creatinine 0.9 magnesium 2 Afebrile Patient seen and examined with Dr. Forbes PHYSICAL EXAM: VITAL SIGNS: Reviewed. GENERAL: Well-developed in no acute distress. HEENT: No sclera icterus. Extraocular movements grossly intact. Moist buccal mucosa. Head is atraumatic, normocephalic. ABDOMEN: Soft. Nondistended. Nontender. NEUROLOGIC: Alert and oriented. Cranial nerves II through XII grossly intact. ASSESSMENT: 1. Abdominal pain likely due to ileus 2. Prior history of bowel obstructions PLAN: -Advance diet to regular -Patient can be discharged from surgical standpoint when medically cleared Physician Railroad Crossing Protection Maintainer note has been reviewed by physician. Signing provider agrees with the documented findings, assessment, and plan of care. Objective - Vital Signs Vital signs: Vital Signs Temp 97.6 F 02/03/22 07:27 Pulse 58 L 02/03/22 07:27 Resp 16 02/03/22 07:27 BP 119/61 02/03/22 07:27 Pulse Ox 97 02/03/22 07:27 FiO2 Intake & Output 02/02/22 02/03/22 02/03/22 18:59 06:59 18:59 Intake Total 75 Balance 75 Intake: Oral 75 Other: Voiding Method Toilet Toilet Toilet # Bowel Movements 2 1 # Emeses 3 - Labs CBC & Chem 7: 02/03/22 04:17 02/03/22 04:17 Labs: Abnormal Lab Results - Last 24 Hours (Table) 02/03/22 02/03/22 Range/Units 04:17 04:17 WBC 10.62 H (4.50-10.00) X 10*3/uL RBC 4.05 L (4.40-5.60) X 10*6/uL Hgb 12.2 L (13.0-17.0) g/dL MCV 98.0 H (80.0-97.0) fL MCHC 30.7 L (32.0-37.0) g/dL Immature Gran # 0.06 H (0.00-0.04) X 10*3/uL Monocytes # 1.36 H (0.20-1.00) X 10*3/uL Total Protein 5.8 L (6.2-8.2) g/dL Albumin 3.7 L (3.8-4.9) g/dL Microbiology - Last 24 Hours (Table) 02/02/22 13:58 Stool Culture - Preliminary Stool
[2022-02-03] MEDS: CHOLESTYRAMINE (WITH SUGAR) 4 GM PACKET PO SCH ×2 (13:52→16:37)
[2022-02-03] MEDS: SODIUM CHLORIDE 0.9% 1,000 ML IV SCH (16:36)
[2022-02-03 19:49] VITALS: RESP 16
[2022-02-03] MEDS: LATANOPROST 0.005% OPHTH DROPS 2.5 ML BTL BOTH EYES SCH (20:07)
[2022-02-03] MEDS: prednisoLONE ACETATE 1% OPHTH DROPS 5 ML BTL LEFT EYE SCH (20:09)
[2022-02-03] MEDS ORDERED: diphenhydrAMINE 25 MG CAP PO PRN (21:12)
[2022-02-03] MEDS ORDERED: DICYCLOMINE 10 MG CAP PO PRN (21:15)
--- NOTE | 2022-02-03 21:18 | P.PN ---
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 He denies any nausea vomiting but reports diarrhea all night about 8 bowel sounds movement last night with no blood, last bowel movement was 7:00 this morning. Patient denies any chest pain or dyspnea He denies smoking but drinks 1-2 beers about 4 days a week, no illicit drugs. He states that he follows up with [facility] for His Chronic Leukemia but since Covid He Stopped Following up, Patient Denies Any Specific Symptoms Recorded. Also Patient States That He Is Following up with Glass Etcher Helper for Right Corneal Ulcers for More Than a Year, His Glass Etcher Helper Is Dr. Nguyen Was Recently Seen Him A Few Days Ago, He Is on Multiple Eyedrops, Please Refer to Medication List. Also his community recreation coordinator referred him to another colleague as an outpatient. Hemodynamically stable and patient is afebrile. That showed mild leukocytosis of 11.7, rest of CBC, BMP, liver enzymes and urine analysis and troponin are unremarkable. EKG showing normal sinus rhythm at [address]-T changes and sinus arrhythmia CT of the abdomen and pelvis with contrast: Mild to moderate right pleural effusion. Atelectasis., 6 mm calculus in the left lower kidney pole. Multiple dilated air and fluid small bowel loops throughout the abdomen. Patient given pain medication and IV fluids, currently on liquid diet 02/03/2022 Patient today doing well, he was advanced on regular diet, he vomited once last night, also had one bowel movement 4:00 in the morning which was loose but no more bowel movements since then, no abdominal pain. Hemodynamically stable. Patient was cleared for discharge by surgery team today. Patient wanted to go home today. We will keep monitor him for 24 hours. C. diff is negative, stool lactoferrin is negative. Stool cultures pending however production corresponding is negative. He states ointment was irritable bowel syndrome rather than inflammatory or infectious disease with negative WBCs the stool. Patient has mild leukocytosis which could be chronic. Patient with no fever, no other signs of infection and as a separate his potential stone and is negative at 0.06. His will discharge in 24 hours to 48 hours if he keeps improving and stable Objective - Vital Signs Vital signs: Vital Signs Temp 97.6 F 02/03/22 07:27 Pulse 58 L 02/03/22 07:27 Resp 16 02/03/22 07:27 BP 119/61 02/03/22 07:27 Pulse Ox 97 02/03/22 07:27 FiO2 Intake & Output 02/02/22 02/03/22 02/03/22 18:59 06:59 18:59 Intake Total 75 Balance 75 Intake: Oral 75 Other: Voiding Method Toilet Toilet Toilet # Bowel Movements 2 1 # Emeses 3 - Exam GENERAL: The patient is alert and oriented x3, not in any acute distress. Well developed, well nourished. HEENT: Pupils are round and equally reacting to light. EOMI. No scleral icterus. No conjunctival pallor. Normocephalic, atraumatic. No pharyngeal erythema. No thyromegaly. CARDIOVASCULAR: S1 and S2 present. No murmurs, rubs, or gallops. PULMONARY: Chest is clear to auscultation, no wheezing or crackles. ABDOMEN: Soft, nontender, nondistended, normoactive bowel sounds. No palpable organomegaly. MUSCULOSKELETAL: No joint swelling or deformity. EXTREMITIES: No cyanosis, clubbing, or pedal edema. NEUROLOGICAL: Gross neurological examination did not reveal any focal deficits. SKIN: No rashes. no petechiae. - Labs CBC & Chem 7: 02/03/22 04:17 02/03/22 04:17 Labs: Abnormal Lab Results - Last 24 Hours (Table) 02/03/22 02/03/22 Range/Units 04:17 04:17 WBC 10.62 H (4.50-10.00) X 10*3/uL RBC 4.05 L (4.40-5.60) X 10*6/uL Hgb 12.2 L (13.0-17.0) g/dL MCV 98.0 H (80.0-97.0) fL MCHC 30.7 L (32.0-37.0) g/dL Immature Gran # 0.06 H (0.00-0.04) X 10*3/uL Monocytes # 1.36 H (0.20-1.00) X 10*3/uL Total Protein 5.8 L (6.2-8.2) g/dL Albumin 3.7 L (3.8-4.9) g/dL Microbiology - Last 24 Hours (Table) 02/02/22 13:58 Stool Culture - Preliminary Stool Assessment and Plan Assessment: Small bowel obstruction versus ileus, improving History of bowel obstruction in 2006 status post bowel resection. 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 He. With community recreation coordinator as an outpatient Plan: This is a pleasant 76 years old male who presents with ileus Resume regular diet, normal saline and pain management Surgery team consult to the patient for discharge Resume aspirin GI team consult signed off start cholestyramine and Bentyl when necessary Labs and medication were reviewed.. Continue same treatment. Continue with symptomatic treatment. Resume home medication. Monitor lytes and vitals. DVT and GI prophylaxis. Further recommendations depends on the clinical course of the patient DVT prophylaxis: Subcutaneous heparin GI Prophylaxis: Pepcid Possible discharge in 24-48 hours if he keeps improving
[2022-02-04 07:27] VITALS: BP 124/73; PULSE 57; TEMP 98.3
[2022-02-04] MEDS: SODIUM CHLORIDE 0.9% 1,000 ML IV SCH (07:33)
[2022-02-04] MEDS: HEPARIN SODIUM,PORCINE/PF 5,000 UNIT/0.5 ML SYRINGE SQ SCH (08:04)
[2022-02-04] MEDS: FAMOTIDINE 20 MG/2 ML VIAL IV SCH (08:04)
[2022-02-04] MEDS: DORZOLAMIDE-TIMOLOL 2.23%/0.68 10ML BTL BOTH EYES SCH (08:05)
[2022-02-04] MEDS: CHOLESTYRAMINE (WITH SUGAR) 4 GM PACKET PO SCH (08:05)
[2022-02-04] MEDS: prednisoLONE ACETATE 1% OPHTH DROPS 5 ML BTL RIGHT EYE SCH (08:06)
[2022-02-04] MEDS: ERYTHROMYCIN 5 MG/GM OPHTH OINT 3.5 GM TUBE RIGHT EYE SCH (08:07)
[2022-02-04 09:16] LABS: Basophils # (A) 0.03 X 10*3/uL (0.00-0.10); Basophils % (A) 0.4 %; Eosinophils # (A) 0.25 X 10*3/uL (0.04-0.35); Eosinophils % (A) 3.6 %; HCT 37.9 % (39.6-50.0); Immature Grans, Automated 0.4 %; Lymphocytes # (A) 2.66 X 10*3/uL (0.90-5.00); Lymphocytes % (A) 38.5 %; MCH 30.5 pg (27.0-32.0); MCHC 31.7 g/dL (32.0-37.0); MCV 96.2 fL (80.0-97.0); Mean Platelet Volume 10.3 fL (9.5-12.2); Monocytes # (A) 0.95 X 10*3/uL (0.20-1.00); Monocytes % (A) 13.7 %; NRBC Per 100 WBC 0 /100 WBCS (0.0-0.0); Neutrophils # (A) 2.99 X 10*3/uL (1.80-7.70); Neutrophils % (A) 43.4 %; Platelet Count 381 X 10*3/uL (140-440); RBC 3.94 X 10*6/uL (4.40-5.60); WBC 6.91 X 10*3/uL (4.50-10.00)
--- NOTE | 2022-02-04 14:58 | P.PN ---
Subjective Progress Note Date: 02/04/22 CHIEF COMPLAINT: Ileus HISTORY OF PRESENT ILLNESS: Patient's abdominal pain has resolved. Patient reports the diarrhea has resolved. His last stool was yesterday morning. Medicine service had ordered Questran to help bulk up the stools. Patient perceives having flatus. He is tolerating diet. Afebrile. WBC normalized at 6.91 hemoglobin is 12 Patient seen and examined with Dr. Forbes PHYSICAL EXAM: VITAL SIGNS: Reviewed. GENERAL: Well-developed in no acute distress. HEENT: No sclera icterus. Extraocular movements grossly intact. Moist buccal mucosa. Head is atraumatic, normocephalic. ABDOMEN: Soft. Nondistended. Nontender. NEUROLOGIC: Alert and oriented. Cranial nerves II through XII grossly intact. ASSESSMENT: 1. Abdominal pain likely due to ileus 2. Prior history of bowel obstructions PLAN: -Patient can be discharged from surgical standpoint when medically cleared -Would recommend to stop the Questran -Continue regular diet Physician Reducing Machine Operator note has been reviewed by physician. Signing provider agrees with the documented findings, assessment, and plan of care. Objective - Vital Signs Vital signs: Vital Signs Temp 98.3 F 02/04/22 07:26 Pulse 57 L 02/04/22 07:26 Resp 16 02/04/22 07:26 BP 124/73 02/04/22 07:26 Pulse Ox 97 02/04/22 07:26 FiO2 Intake & Output 02/03/22 02/04/22 02/04/22 18:59 06:59 18:59 Intake Total 150 Balance 150 Intake: Oral 150 Other: Voiding Method Toilet Toilet # Voids 3 1 # Bowel Movements 1 - Labs CBC & Chem 7: 02/04/22 06:24 02/03/22 04:17 Labs: Abnormal Lab Results - Last 24 Hours (Table) 02/04/22 Range/Units 06:24 RBC 3.94 L (4.40-5.60) X 10*6/uL Hgb 12.0 L (13.0-17.0) g/dL Hct 37.9 L (39.6-50.0) % MCHC 31.7 L (32.0-37.0) g/dL
--- NOTE | 2022-02-05 12:43 | P.DS ---
Providers Date of admission: 02/01/22 21:15 Attending physician: Kelly Celaya Consults: 02/02/22 08:53 Consult Physician Urgent Consulting Provider: Kaleb Forbes Consult Reason/Comments: sbo Do you want consulting provider notified?: Yes 02/02/22 10:56 Consult Physician Urgent Consulting Provider: Gillian Larkin Consult Reason/Comments: ileus and diarrhea Do you want consulting provider notified?: Yes Primary care physician: Talya Nelson [facility] Course: Diagnoses: Small bowel obstruction versus ileus, improving History of bowel obstruction in 2006 status post bowel resection. 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 He. 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 Atelectasis., 6 mm calculus in the left lower kidney pole. Multiple dilated air and fluid small bowel loops throughout the abdomen. Patient has been evaluated by surgery and GI team, GI team signed off and patient showed interval improvement with treatment, abdominal pain is resolved and patient tolerated diet well, his diarrhea stopped since yesterday. Patient was feeling fine. Patient's back to normal state, he is afebrile, leukocytosis resolved and the loops back to normal at 6.9. His production gallstone and was 0.06. Antibiotics not needed during hospitalization or upon discharge. No evidence of infection. Most current was stopped upon discharge. Denies any other symptoms. No chest pain or dyspnea. No vomiting. No urinary complaints. No fever. Patient was cleared for discharge by surgery team Patient informed about his chest x-ray abnormal finding including pleural thickening, patient informed me he already knows that and he follows up with Dr. Finley whome informed patient it is going to be chronic problem, however he agrees to follow up with Dr. Finley upon discharge Problems and management plan were discussed with the patient and he verbalized understanding and acceptance Patient was found stable and can be discharged home however he needs follow-up as an outpatient. Patient was instructed to follow up with PCP Dr. Finley within one week and patient agrees Patient instructed to follow up with Dr. Larkin from GI service and Dr. Phillip in 1-2 weeks and he agreesa Physical exam Gen: patient is a AAOx3, no distress CVS: S1-S2, RRR, no murmur Lungs: B/L CTA, no wheezing Abdomen: soft, no distention, no tenderness, positive bowel sounds Extremity: no leg edema or induration Time spent more than 35 minutes Patient Condition at Discharge: Good Plan - Discharge Summary New Discharge Prescriptions: Continue Multivit-Min/FA/Lycopen/Lutein [Centrum Silver Tablet] 1 tab PO DAILY Omeprazole [PriLOSEC] 20 mg PO DAILY Aspirin 325 mg PO DAILY prednisoLONE ACETATE 1% OPHTH [Pred Forte 1%] 1 drop LEFT EYE DAILY Latanoprost/Pf [Latanoprost 0.005% Eye Drop] 1 drop BOTH EYES HS prednisoLONE ACETATE 1% OPHTH [Pred Forte 1%] 2 drops RIGHT EYE DAILY Erythromycin Ophth Oint [Romycin Ophth Oint] 0.25 inch RIGHT EYE BID Dorzolamide/Timolol/Pf [Dorzolamide 2%-Timolol 0.5%] 1 drop BOTH EYES BID Calcium Carbonate [Calcium] 600 mg PO DAILY Discontinued Penicillin V Potassium [Pen Vee K] 250 mg PO BID Discharge Medication List Aspirin 325 mg PO DAILY 12/24/19 [History] Multivit-Min/FA/Lycopen/Lutein [Centrum Silver Tablet] 1 tab PO DAILY 12/24/19 [History] Omeprazole [PriLOSEC] 20 mg PO DAILY 12/24/19 [History] Calcium Carbonate [Calcium] 600 mg PO DAILY 02/01/22 [History] Dorzolamide/Timolol/Pf [Dorzolamide 2%-Timolol 0.5%] 1 drop BOTH EYES BID 02/01/22 [History] Erythromycin Ophth Oint [Romycin Ophth Oint] 0.25 inch RIGHT EYE BID 02/01/22 [History] Latanoprost/Pf [Latanoprost 0.005% Eye Drop] 1 drop BOTH EYES HS 02/01/22 [History] prednisoLONE ACETATE 1% OPHTH [Pred Forte 1%] 1 drop LEFT EYE DAILY 02/01/22 [History] prednisoLONE ACETATE 1% OPHTH [Pred Forte 1%] 2 drops RIGHT EYE DAILY 02/01/22 [History] Follow up Appointment(s)/Referral(s): Talya Nelson MD [Primary Care Provider] - 02/25/22 9:00 am Gillian Larkin MD [STAFF PHYSICIAN] - 04/01/22 3:30 pm () Kaleb Forbes MD [STAFF PHYSICIAN] - 02/11/22 2:30 pm (General surgeon) Patient Instructions/Handouts: Ileus (DC) Activity/Diet/Wound Care/Special Instructions: Heart healthy diet Activity is restricted till you see your doctor please follow up with your pourer buggy ladle in one week, please call to make appointment , you have the contact information as your informed the medical team Discharge Disposition: HOME SELF-CARE
== END 2022-02-04 16:08 | disposition home or self-care (01) | DRG 389 ==
LOC: EC 13:30 → 5NMEDONC 21:15 → 4SSUR 23:36
PROVIDERS: ADMIT Hospitalist; ATTEND Hospitalist
DX: K56.7 Ileus, unspecified (principal); Z94.81 Bone marrow transplant status; J90 Pleural effusion, not elsewhere classified; J98.11 Atelectasis; K58.9 Irritable bowel syndrome, unspecified; K80.20 Calculus of gallbladder without cholecystitis without obstruction; Z85.6 Personal history of leukemia; K57.30 Diverticulosis of large intestine without perforation or abscess without bleeding; N20.0 Calculus of kidney; K21.9 Gastro-esophageal reflux disease without esophagitis; H16.001 Unspecified corneal ulcer, right eye; Z90.49 Acquired absence of other specified parts of digestive tract; Z90.81 Acquired absence of spleen; Z79.82 Long term (current) use of aspirin; Z87.01 Personal history of pneumonia (recurrent); Z87.19 Personal history of other diseases of the digestive system; Z87.81 Personal history of (healed) traumatic fracture; Z80.9 Family history of malignant neoplasm, unspecified
CPT/HCPCS: 36415; 71045; 74177; 80053; 81003; 82150; 83605; 83630; 83690; 83735; 84145; 84484; 85025; 85610; 85730; 87045; 87046; 87324; 93005; 96361; 96374; 99285

== ENCOUNTER 2023-07-05 11:10 | Emergency (ER) | payer MEDICARE ==
[2023-07-05] MEDS ORDERED: SODIUM CHLORIDE 0.9% 1,000 ML IV STA (11:34)
[2023-07-05 11:37] VITALS: RESP 18
[2023-07-05 11:51] LABS: Basophils % (A) 0 %; Eosinophils # (A) 0.1 k/uL (0-0.7); Eosinophils % (A) 1 %; HCT 43.4 % (39.0-53.0); HGB 13.7 gm/dL (13.0-17.5); Lymphocytes # (A) 2.5 k/uL (1.0-4.8); Lymphocytes % (A) 22 %; MCH 30.6 pg (25.0-35.0); MCHC 31.6 g/dL (31.0-37.0); MCV 96.8 fL (80.0-100.0); Mean Platelet Volume 7.5; Monocytes # (A) 0.8 k/uL (0-1.0); Monocytes % (A) 7 %; Neutrophils # (A) 7.6 k/uL (1.3-7.7); Neutrophils % (A) 68 %; Platelet Count 379 k/uL (150-450); RBC 4.48 m/uL (4.30-5.90); RDW 12.6 % (11.5-15.5); WBC 11.3 k/uL (3.8-10.6)
[2023-07-05 12:06] LABS: ALT 29 U/L (4-49); AST 42 U/L (17-59); African American GFR (CKD) 87 (>60 ml/min/1.73 sqM); Albumin 4.1 g/dL (3.5-5.0); Alkaline Phosphatase 98 U/L (38-126); Anion Gap 10 mmol/L; Blood Urea Nitrogen 17 mg/dL (9-20); Calcium 9.4 mg/dL (8.4-10.2); Carbon Dioxide 24 mmol/L (22-30); Chloride 102 mmol/L (98-107); Glucose 129 mg/dL (74-99); Magnesium 1.9 mg/dL (1.6-2.3); Non-African American GFR(CKD) 75 (>60 ml/min/1.73 sqM); Potassium 4.6 mmol/L (3.5-5.1); Sodium 136 mmol/L (137-145); Total Bilirubin 0.6 mg/dL (0.2-1.3); Total Protein 6.8 g/dL (6.3-8.2)
--- NOTE | 2023-07-05 12:12 | ED ---
General Adult HPI - General Chief complaint: Syncope Stated complaint: syncope Time Seen by Provider: 07/05/23 11:19 Source: patient, EMS, RN notes reviewed, old records reviewed Mode of arrival: EMS Limitations: no limitations - History of Present Illness Initial comments: Patient is a 78-year-old male who presents emergency Department complaining of s yncopal episode, as well as abdominal pain. Was standing taken the garbage talking with a neighbor when he experienced a syncopal episode at home. States she was feeling lightheaded and slowly lowered himself to the ground. Denies any chest pain or shortness of breath. States that he expressed one episode of nonbilious, bloody emesis after single episode. Did not hit his head as far as he knows. Does endorse loss of consciousness. Is not on blood thinners. Does have a history of GI surgery as well as small bowel obstruction. Has had decreased bowel movements over the last few days however still is passing gas and is having runny bowel movements. Denies any other episodes of nausea or vomiting. Has no other acute complaints at this time. Presents for further evaluation. - Related Data Home Medications Medication Instructions Recorded Confirmed Aspirin 325 mg PO DAILY 12/24/19 07/05/23 Multivit-Min/FA/Lycopen/Lutein 1 tab PO DAILY 12/24/19 07/05/23 [Centrum Silver Tablet] Omeprazole [PriLOSEC] 20 mg PO DAILY 12/24/19 07/05/23 Dorzolamide/Timolol/Pf 1 drop RIGHT EYE BID 02/01/22 07/05/23 [Dorzolamide 2%-Timolol 0.5%] Latanoprost/Pf [Latanoprost 0.005% 1 drop BOTH EYES HS 02/01/22 07/05/23 Eye Drop] Brimonidine Tartrate [Alphagan P 1 drops RIGHT EYE BID 07/05/23 07/05/23 0.2% Ophth Soln] Penicillin V Potassium [Pen Vee K] 250 mg PO BID 07/05/23 07/05/23 Allergies Allergy/AdvReac Type Severity Reaction Status Date / Time No Known Allergies Allergy Verified 07/05/23 14:52 Review of Systems ROS Statement: Those systems with pertinent positive or pertinent negative responses have been documented in the HPI. Review of Systems: CONST: Denies fever EYES: Denies blurry vision ENT: Denies nasal congestion C/V: Denies Chest pain RESP: Denies shortness of breath GI: Denies abdominal pain : Denies dysuria SKIN: Denies rash. MSK: Denies joint pain. NEURO: Denies headache ROS Other: All systems not noted in ROS Statement are negative. 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, leukemia, fx left elbow 12/23/19 History of Any Multi-Drug Resistant Organisms: None Reported Past Surgical History: Bowel Resection, Cholecystectomy, Orthopedic Surgery Additional Past Surgical History / Comment(s): bone marrow transplant 2006, spleenectomy, surgery left hip after injury Past Anesthesia/Blood Transfusion Reactions: No Reported Reaction Past Psychological History: No Psychological Hx Reported Smoking Status: Never smoker Past Alcohol Use History: Daily Past Drug Use History: None Reported - Past Family History Father Family Medical History: Cancer Mother Family Medical History: Cancer Brother(s) Family Medical History: Cancer General Exam - General Exam Comments Initial Comments: General: Appears in no acute distress. HEAD: Normal with no signs of head trauma. EYES: Legally blind. ENT: Hearing grossly intact, normal oropharynx. RESPIRATORY: Clear breath sounds bilaterally. No wheezes, rales, or rhonchi. C/V: Regular rate and rhythm. S1 and S2 auscultated, no edema, peripheral pulses 2+ and intact throughout ABD: Abd is soft, nontender, nondistended. No focal tenderness. EXT: Normal range of motion, no obvious deformity SKIN: No rashes or lesions observed on exposed skin. NEURO: Alert and oriented 4. GCS of 15. NIH is 0 for acute deficits. Limitations: no limitations Course Vital Signs 07/05/23 07/05/23 07/05/23 11:14 13:31 14:00 Pulse Rate 59 L 63 61 Respiratory 18 18 18 Rate Blood Pressure 101/65 125/79 139/76 O2 Sat by Pulse 99 100 98 Oximetry Medical Decision Making - Medical Decision Making Was pt. sent in by a medical professional or institution (, PA, WOMEN'S SWIM COACH, urgent care, hospital, or fci...) When possible be specific @ -No Did you speak to anyone other than the patient for history (EMS, parent, family, police, friend...)? What history was obtained from this source @ -No Did you review nursing and triage notes (agree or disagree)? Why? @ -I reviewed and agree with nursing and triage notes Were old charts reviewed (outside hosp., previous admission, EMS record, old EKG, old radiological studies, urgent care reports/EKG's, fci records)? Report findings @ -Old charts reviewed. Differential Diagnosis (chest pain, altered mental status, abdominal pain women, abdominal pain men, vaginal bleeding, weakness, fever, dyspnea, syncope, headache, dizziness, GI bleed, back pain, seizure, CVA, palpatations, mental health, musculoskeletal)? @ -Differential Syncope: Valvular disease, hypertrophic cardiomyopathy, pulmonary embolism, tamponade, tachycardia, bradycardia, MA, hypovolemia, hemorrhage, dissection, anemia, intracranial hemorrhage, seizure, hypoglycemia, carbon monoxide poisoning, this is not meant to be an all-inclusive list. Differential Abdominal Pain Men: Appendicitis, cholecystitis, diverticulosis, ischemic bowel, pancreatitis, he patitis, UTI, gastroenteritis, AAA, incarcerated hernia, bowel obstruction, constipation, inflammatory bowel, hepatitis, peptic ulcer disease, splenic infarction, perforated viscus, testicular torsion, this is not meant to be an all-inclusive list EKG interpreted by me (3pts min.). @ -As above X-rays interpreted by me (1pt min.). @ -Chest x-ray shows no obvious acute cardio pulmonary process. CT interpreted by me (1pt min.). @ -CT brain shows no obvious acute intracranial process. CT abdomen and pelvis does reveal dilated small bowel loops with a suspected transition point in the right lower quadrant, suspicious for complete vs partial small bowel obstruction. U/S interpreted by me (1pt. min.). @ -None done What testing was considered but not performed or refused? (CT, X-rays, U/S, labs)? Why? @ -None What meds were considered but not given or refused? Why? @ -None Did you discuss the management of the patient with other professionals (pr ofessionals i.e. , PA, WOMEN'S SWIM COACH, lab, RT, psych nurse, medical social consultant, pound attendant, teacher, administrative officer, bottle caser)? Give summary @ -Discussed with surgeon on-call Dr. David who reviewed the imaging and believes it is non-a very impressive small bowel obstruction. Possibly a parti al bowel obstruction. He recommends clear liquids. Does not believe that the patient absolutely has to stay and I'm in agreement with this. If he wants to go home he can go home on clear liquid diet for 2 days and return if symptoms worsen. Was smoking cessation discussed for >3mins.? @ -No Was critical care preformed (if so, how long)? @ -No Were there social determinants of health that impacted care today? How? (Homelessness, low income, unemployed, alcoholism, drug addiction, transportation, low edu. Level, literacy, decrease access to med. care, [facility], rehab)? @ -No Was there de-escalation of care discussed even if they declined (Discuss DNR or withdrawal of care, Hospice)? DNR status @ -No What co-morbidities impacted this encounter? (DM, HTN, Smoking, COPD, CAD, Cancer, CVA, ARF, Chemo, Hep., AIDS, mental health diagnosis, sleep apnea, morbid obesity)? @ -None Was patient admitted / discharged? Hospital course, mention meds given and route, prescriptions, significant lab abnormalities, going to OR and other pertinent info. @ -Based on the patient's presentation and physical exam, concern for syncopal episode as well as abdominal pain. We will obtain syncope workup as well as CT abdomen and pelvis. Patient was in agreement this plan. Vital signs within acceptable limits. EKG shows no evidence of acute ischemia. Patient's laboratory studies are within acceptable limits. CT brain unremarkable. Chest x-ray unremarkable. CT of the pelvis shows possible partial small bowel obstruction. Patient did have a bowel movement here in the department that he states was satisfactory and is feeling better in terms of his abdominal complaints. However we will discuss with the surgeon on-call. He was in agreement this plan. I discussed the case with Dr. David who reviewed images. Patient like to go home and he believes this is reasonable on a clear liquid diet as he is not concerning for is full small bowel obstruction at this time. Return precautions will be discussed. Discussed with patient. He would like to go home.Discussed clear liquid diet. He will follow up as needed. He was in agreement this plan. I instructed the patient to follow up with their PCP in the next 1-3 days. I explained that the patient should return to the emergency department if they experience any worsening symptoms. Strict return precautions were discussed with the patient. The patient expressed understanding of these instructions. I answered all questions that the patient had. The patient was discharged home in [good] condition with their prescriptions and follow up information. Undiagnosed new problem with uncertain prognosis? @ -No Drug Therapy requiring intensive monitoring for toxicity (Heparin, Nitro, Insulin, Cardizem)? @ -No Were any procedures done? @ -No Diagnosis/symptom? @ -Syncope, abdominal pain with partial small bowel obstruction that improved Acute, or Chronic, or Acute on Chronic? @ -Acute Uncomplicated (without systemic symptoms) or Complicated (systemic symptoms)? @ -Complicated Side effects of treatment? @ -No Exacerbation, Progression, or Severe Exacerbation? @ -No Poses a threat to life or bodily function? How? (Chest pain, USA, MA, pneumonia, PE, COPD, DKA, ARF, appy, cholecystitis, CVA, Diverticulitis, Homicidal, Suicidal, threat to staff... and all critical care pts) @ -Unlikely - Lab Data Result diagrams: 07/05/23 11:43 07/05/23 11:43 Lab Results 07/05/23 07/05/23 07/05/23 Range/Units 11:43 11:43 11:43 WBC 11.3 H (3.8-10.6) k/uL RBC 4.48 (4.30-5.90) m/uL Hgb 13.7 (13.0-17.5) gm/dL Hct 43.4 (39.0-53.0) % MCV 96.8 (80.0-100.0) fL MCH 30.6 (25.0-35.0) pg MCHC 31.6 (31.0-37.0) g/dL RDW 12.6 (11.5-15.5) % Plt Count 379 (150-450) k/uL MPV 7.5 Neutrophils % 68 % Lymphocytes % 22 % Monocytes % 7 % Eosinophils % 1 % Basophils % 0 % Neutrophils # 7.6 (1.3-7.7) k/uL Lymphocytes # 2.5 (1.0-4.8) k/uL Monocytes # 0.8 (0-1.0) k/uL Eosinophils # 0.1 (0-0.7) k/uL Basophils # 0.0 (0-0.2) k/uL PT 11.1 (10.0-12.5) sec INR 1.0 (<1.2) APTT 24.1 (22.0-30.0) sec Sodium 136 L (137-145) mmol/L Potassium 4.6 (3.5-5.1) mmol/L Chloride 102 (98-107) mmol/L Carbon Dioxide 24 (22-30) mmol/L Anion Gap 10 mmol/L BUN 17 (9-20) mg/dL Creatinine 0.97 (0.66-1.25) mg/dL Est GFR (CKD-EPI)AfAm 87 (>60 ml/min/1.73 sqM) Est GFR (CKD-EPI)NonAf 75 (>60 ml/min/1.73 sqM) Glucose 129 H (74-99) mg/dL Calcium 9.4 (8.4-10.2) mg/dL Magnesium 1.9 (1.6-2.3) mg/dL Total Bilirubin 0.6 (0.2-1.3) mg/dL AST 42 (17-59) U/L ALT 29 (4-49) U/L Alkaline Phosphatase 98 (38-126) U/L Total Protein 6.8 (6.3-8.2) g/dL Albumin 4.1 (3.5-5.0) g/dL Urine Color Urine Appearance (Clear) Urine pH (5.0-8.0) Ur Specific [place] (1.001-1.035) Urine Protein (Negative) Urine Glucose (UA) (Negative) Urine Ketones (Negative) Urine Blood (Negative) Urine Nitrite (Negative) Urine Bilirubin (Negative) Urine Urobilinogen (<2.0) mg/dL Ur Leukocyte Esterase (Negative) Urine RBC (0-5) /hpf Urine WBC (0-5) /hpf Ur Squamous Epith Cells (0-4) /hpf Hyaline Casts (0-2) /lpf Urine Mucus (None) /hpf Influenza Type A (PCR) (Not Detectd) Influenza Type B (PCR) (Not Detectd) RSV (PCR) (Not Detectd) SARS-CoV-2 (PCR) (Not Detectd) 07/05/23 07/05/23 Range/Units 11:43 13:30 WBC (3.8-10.6) k/uL RBC (4.30-5.90) m/uL Hgb (13.0-17.5) gm/dL Hct (39.0-53.0) % MCV (80.0-100.0) fL MCH (25.0-35.0) pg MCHC (31.0-37.0) g/dL RDW (11.5-15.5) % Plt Count (150-450) k/uL MPV Neutrophils % % Lymphocytes % % Monocytes % % Eosinophils % % Basophils % % Neutrophils # (1.3-7.7) k/uL Lymphocytes # (1.0-4.8) k/uL Monocytes # (0-1.0) k/uL Eosinophils # (0-0.7) k/uL Basophils # (0-0.2) k/uL PT (10.0-12.5) sec INR (<1.2) APTT (22.0-30.0) sec Sodium (137-145) mmol/L Potassium (3.5-5.1) mmol/L Chloride (98-107) mmol/L Carbon Dioxide (22-30) mmol/L Anion Gap mmol/L BUN (9-20) mg/dL Creatinine (0.66-1.25) mg/dL Est GFR (CKD-EPI)AfAm (>60 ml/min/1.73 sqM) Est GFR (CKD-EPI)NonAf (>60 ml/min/1.73 sqM) Glucose (74-99) mg/dL Calcium (8.4-10.2) mg/dL Magnesium (1.6-2.3) mg/dL Total Bilirubin (0.2-1.3) mg/dL AST (17-59) U/L ALT (4-49) U/L Alkaline Phosphatase (38-126) U/L Total Protein (6.3-8.2) g/dL Albumin (3.5-5.0) g/dL Urine Color Yellow Urine Appearance Clear (Clear) Urine pH 6.0 (5.0-8.0) Ur Specific [place] 1.020 (1.001-1.035) Urine Protein Trace (Negative) Urine Glucose (UA) Negative (Negative) Urine Ketones Negative (Negative) Urine Blood Negative (Negative) Urine Nitrite Negative (Negative) Urine Bilirubin Negative (Negative) Urine Urobilinogen <2.0 (<2.0) mg/dL Ur Leukocyte Esterase Small (Negative) Urine RBC 1 (0-5) /hpf Urine WBC 3 (0-5) /hpf Ur Squamous Epith Cells <1 (0-4) /hpf Hyaline Casts 4 H (0-2) /lpf Urine Mucus Moderate H (None) /hpf Influenza Type A (PCR) Not Detected (Not Detectd) Influenza Type B (PCR) Not Detected (Not Detectd) RSV (PCR) Not Detected (Not Detectd) SARS-CoV-2 (PCR) Not Detected (Not Detectd) - EKG Data -: EKG Interpreted by Me EKG Comments: 12-lead Electrocardiogram Interpretation Note EKG was reviewed and interpreted by myself. 12-lead ECG performed at 1119 is interpreted by me as revealing normal sinus rhythm at a rate of 60 beats per minute. [place] is normal. [place] intervals 147 ms, QRS duration is 87 ms, QTc is 441 ms.. There were no ST or T wave abnormalities to suggest myocardial ischemia or injury. R wave progression across the precordium was satisfactory. By my interpretation this EKG is non-diagnostic for acute ischemia. Disposition Clinical Impression: Abdominal pain, Syncope Disposition: HOME SELF-CARE Condition: Good Instructions (If sedation given, give patient instructions): Abdominal Pain (ED), Syncope (ED) Is patient prescribed a controlled substance at d/c from ED?: No Referrals: Talya Nelson MD [Primary Care Provider] - 1-2 days Time of Disposition: 14:45
--- NOTE | 2023-07-05 12:57 | XR ---
EXAMINATION TYPE: XR chest 2V DATE OF EXAM: 07/05/2023 COMPARISON: 02/03/2022 HISTORY: Shortness of breath TECHNIQUE: Frontal and lateral views of the chest are obtained. FINDINGS: Scattered senescent parenchymal changes noted. Hyperinflation compatible with COPD. Right basilar pleural thickening with small effusion noted. No significant interval change appreciate d. Heart size is stable. Mediastinal structures are stable and grossly unremarkable. No evidence for hilar prominence. Degenerative changes dorsal spine. IMPRESSION: 1. Right basilar pleural thickening with small effusion noted. No significant interval change appreci ated.
--- NOTE | 2023-07-05 13:16 | CT ---
EXAMINATION TYPE: CT brain wo con DATE OF EXAM: 07/05/2023 COMPARISON: None HISTORY: syncope CT DLP: 1075.[address] of the brain was performed. The ventricles, basal cisterns and sulci overlying the cerebral convexities demonstrate mild enlargem ent. There is no evidence for intracranial hemorrhage or sulcal effacement. There is decreased attenuation about the periventricular white matter and deep white matter of both c erebral hemispheres, compatible with chronic small vessel ischemia. Differential diagnosis does inclu de demyelination. No mass effects are seen.No midline shift. Osseous calvarium is intact. If symptoms persist consider MRI. IMPRESSION: 1. Age related atrophic and chronic small vessel ischemic change without acute intracranial process s een at this time.
--- NOTE | 2023-07-05 13:20 | CT ---
EXAMINATION TYPE: CT abdomen pelvis w con DATE OF EXAM: 07/05/2023 COMPARISON: 02/01/2022 HISTORY: Syncope, abd pain, history of bowel obstruction CT DLP: 691.7 mGycm CONTRAST: CT scan of the abdomen and pelvis is performed without Oral Contrast and with IV Contrast, patient in jected with 100 mL of Isovue 300. FINDINGS: LUNG BASES-: No visible nodule. No infiltrate. Complex right lower lobe collection persists and appe ars unchanged. LIVER/GB: No calcified gallstones. No space occupying hepatic lesion. Biliary tree is of normal ca liber. PANCREAS: No inflammation. No distinct mass. 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 ADRENALS: No nodule. No thickening. KIDNEYS/BLADDER: No hydronephrosis. 6 mm nonobstructing calculus lower pole left kidney. No distinct renal mass. Urinary bladder grossly unremarkable. BOWEL: Dilated small bowel loops up to 3 cm with suspected transition right lower quadrant. Correlate for early complete versus partial distal small bowel obstruction with zone of transition right lower quadrant. Normal-appearing appendix. No evidence for abscess or free air. GENITAL ORGANS: No gross abnormality. LYMPH NODES: No greater than 1cm abdominal or pelvic lymph nodes are appreciated. AORTA: No significant abnormality. OSSEOUS STRUCTURES: Chronic appearing compression fractures of the lower thoracic and upper lumbar sp ine. OTHER: No significant additional abnormality is seen. IMPRESSION: 1. Dilated small bowel loops up to 3 cm with suspected transition right lower quadrant. Correlate for early complete versus partial distal small bowel obstruction with zone of transition right lower miriam drant.
[2023-07-05 13:25] LABS: Partial Thromboplastin Time 24.1 sec (22.0-30.0); Prothrombin Time 11.1 sec (10.0-12.5)
[2023-07-05 14:38] LABS: Hyaline Casts,Urine 4 /lpf (0-2); Mucus,Urine Moderate /hpf; RBC,Urine 1 /hpf (0-5); Squamous Epithelial Cell,Urine <1 /hpf (0-4); WBC,Urine 3 /hpf (0-5)
[2023-07-05 15:09] LABS: Appearance,Urine Clear (Clear); Color,Urine Yellow
[2023-07-05 15:10] LABS: Bilirubin,Urine Negative (Negative); Blood,Urine Negative (Negative); Glucose,Urine (UA) Negative (Negative); Ketones,Urine Negative (Negative); Leukocyte Esterase,Urine Small (Negative); Nitrite,Urine Negative (Negative); Protein,Urine Trace (Negative); Urobilinogen,Urine <2.0 mg/dL (<2.0)
[2023-07-05 15:40] VITALS: BP 140/78; PULSE 80; TEMP 98.1
== END 2023-07-05 15:31 | disposition home or self-care (01) ==
LOC: EC 11:10
DX: R55 Syncope and collapse (principal); K56.609 Unspecified intestinal obstruction, unspecified as to partial versus complete obstruction; I67.82 Cerebral ischemia; K21.9 Gastro-esophageal reflux disease without esophagitis; Z79.899 Other long term (current) drug therapy; Z79.82 Long term (current) use of aspirin; Z20.822 Contact with and (suspected) exposure to COVID-19; Z90.49 Acquired absence of other specified parts of digestive tract
CPT/HCPCS: 36415; 93005; 80053; 83735; 85025; 85610; 85730; 81001; 87636; 71046; 70450; 74177; 99285; 96360; Q9967

== ENCOUNTER → 2023-11-10 | Outpatient (CLI) | payer MEDICARE ==
--- NOTE | 2023-11-10 21:46 | US ---
EXAMINATION TYPE: US scrotum with doppler. Grayscale and color Doppler Duplex imaging performed of anjali henry scrotum. DATE OF EXAM: 11/10/2023 COMPARISON: NONE CLINICAL INDICATION: Male, 78 years old with history of N45.1 EPIDIDYMITIS; BIlateral pain. No swell ing. No injury. EXAM MEASUREMENTS: TESTICLES: Right Testicle: 2.9 x 3.2 x 1.9 cm Left Testicle: 2.6 x 2.5 x 1.9 cm with an incidental 2 mm scrotal yina. The left testicle is slightly smaller in size but both show satisfactory arterial and venous flow. No hyperemia identified. EPIDIDYMIS HEAD: Right Epididymis: 1.1 x 1.0 x 0.6 cm with a tiny 3 mm cyst. Left Epididymis: 0.8 x 0.8 x 0.5 cm Doppler performed to assess for testicular vascularity; good bilateral color flow and waveforms are s een. There is no evidence of testicular torsion. Presence of hydroceles: Trace on the right. Presence of varicoceles: Present on the left. IMPRESSION: 1. No sonographic evidence for testicular torsion. 2. Trace hydrocele on the right and a varicocele on the left.
== END | disposition home or self-care (01) ==
LOC: RADUSWWP 12:33
PROVIDERS: ATTEND Internal Medicine
DX: N43.3 Hydrocele, unspecified (principal); I86.1 Scrotal varices; N45.1 Epididymitis
CPT/HCPCS: 76870; 93975

== ENCOUNTER → 2024-10-10 | Outpatient (CLI) | payer MEDICARE ==
--- NOTE | 2024-10-10 12:54 | XR ---
EXAMINATION TYPE: XR KUB DATE OF EXAM: 10/10/2024 COMPARISON: CT abdomen and pelvis 07/05/2023 HISTORY: R10.9 TECHNIQUE: Single supine KUB image of the abdomen is obtained FINDINGS: Small bowel demonstrates no evidence for dilatation or air fluid levels. Gas and fecal material is seen in most prominently within the right colon with prominent gas-filled r emaining colon. No convincing evidence for pneumoperitoneum. Pelvic phleboliths. Blunting of the right costophrenic angle. The osseous structures are intact. Multilevel degenerative disc disease. Partial visualization of the left femoral head screw. IMPRESSION: 1. Moderate amount of stool present within the right colon with gas filled remaining colon. Correlat e for colonic ileus. 2. Trace right pleural effusion. [facility], , 10/10/2024 12:52 PM
[2024-10-10 13:34] LABS: Appearance,Urine Clear (Clear); Bilirubin,Urine Negative (Negative); Blood,Urine Trace (Negative); Color,Urine Yellow; Glucose,Urine (UA) Negative (Negative); Ketones,Urine 1+ (Negative); Leukocyte Esterase,Urine Negative (Negative); Mucus,Urine Occasional /hpf; Nitrite,Urine Negative (Negative); Protein,Urine Trace (Negative); RBC,Urine 7 /hpf (0-5); Specific Gravity,Urine 1.025 (1.001-1.035); Squamous Epithelial Cell,Urine <1 /hpf (0-4); Urobilinogen,Urine <2.0 mg/dL (<2.0); WBC,Urine 4 /hpf (0-5)
== END | disposition home or self-care (01) ==
LOC: RADXRMAIN 12:28
PROVIDERS: ATTEND Internal Medicine
DX: J90 Pleural effusion, not elsewhere classified (principal); R10.9 Unspecified abdominal pain; R19.5 Other fecal abnormalities
CPT/HCPCS: 74018; 81001

== ENCOUNTER → 2024-10-15 | Outpatient (CLI) | payer MEDICARE ==
--- NOTE | 2024-10-16 08:43 | CT ---
EXAMINATION TYPE: CT abdomen pelvis wo con DATE OF EXAM: 10/15/2024 3:41 PM COMPARISON: 07/05/2023 CLINICAL INDICATION: Male, 79 years old with history of R10.9 left flank pain, TECHNIQUE: Axial images were obtained from above the diaphragm to the pubic rami in the axial plane a t 5 mm thick sections. Reconstructed images are reviewed on the computer in the coronal plane. CONTRAST: mL of . Study performed DLP: 293.7 mGycm, Automated exposure control for dose reduction was used. FINDINGS: Limited CT sections are obtained the lung bases. There is a lung mass the posterior right lung baser measured approximately 3 x 5.1 cm. Small effusion may be present inferiorly. Findings are similar. CT ABDOMEN: Liver: Normal Spleen: Absent Pancreas: Normal Adrenal glands: The adrenal glands are normal. Gallbladder: Not identified Kidneys: No masses are evident. There is moderate left hydronephrosis. There is a mid to inferior p ole right renal cyst measuring 2.9 cm. There is a 0.7 cm nonobstructing renal stone mid to inferior pole left kidney. There is a large 0.7 x 1.0 cm calcification in the mid left ureter causing obstruction with hydrouret er and hydronephrosis. 0.3 cm calcifications just superior within the dilated ureter. Aorta: Vascular calcification is within the aorta. Inferior vena cava: Normal. CT PELVIS: Loops of bowel within the abdomen and pelvis are normal. Diverticulosis without acute diverticulitis is present. There are loops of bowel which are incompletely distended or lack oral contrast limiti ng their evaluation. Appendix: Normal as visualized. Urinary bladder: Normal. Genitourinary structures: Prostate is prominent Osseous structures: No suspicious lytic or sclerotic lesions. Left hip pin is present IMPRESSION: 1. Obstructing 0.7 x 1.0 cm mid left ureteral stone and adjacent 0.3 cm calcification causing modera te left hydronephrosis and hydroureter. 2. Additional nonobstructing renal stones left kidney 3. Diverticulosis without acute diverticulitis. 4. Right Lung base findings stable from 2022. [facility], , 10/16/2024 8:41 AM
== END | disposition home or self-care (01) ==
LOC: RADCTMAIN 15:12
PROVIDERS: ATTEND Internal Medicine
DX: N13.2 Hydronephrosis with renal and ureteral calculous obstruction (principal); N28.1 Cyst of kidney, acquired; K57.90 Diverticulosis of intestine, part unspecified, without perforation or abscess without bleeding
CPT/HCPCS: 74176

== ENCOUNTER → 2024-11-02 | Day surgery (SDC) | payer MEDICARE ==
[2024-10-31 10:54] VITALS: BMI 23.5
[~2024-11-02] MED LIST changes: -ALFENTANIL 500 MCG/ML 2 ML AMP IV ONE; -DEXAMETHASONE SOD PHOSPHATE 10 MG/ML 1 ML VIAL IV ONE; -HYDROcodone/APAP 5-325MG 1 EACH TAB PO ONE; -LACTATED RINGERS 1,000 ML IV ONE; -LACTATED RINGERS 1,000 ML IV SCH; -LIDOCAINE 1%-EPI 1:100,000 20 ML VIAL SQ ONE; +MIDAZOLAM 2 MG/2 ML VIAL IV PRN; -MIDAZOLAM 2 MG/2 ML VIAL ONE; -ONDANSETRON 4 MG/2 ML VIAL IVP ONE; -ROCURONIUM BROMIDE 10 MG/ML 5 ML VIAL IV ONE; -SUCCINYLCHOLINE CHLORIDE 100 MG/5 ML SYR IV ONE; +SUCCINYLCHOLINE CHLORIDE 200 MG/10 ML VIAL IV ONE
[2024-11-02 07:28] VITALS: RESP 16
--- NOTE | 2024-11-02 07:28 | XR ---
EXAMINATION TYPE: XR KUB DATE OF EXAM: 11/02/2024 7:15 AM COMPARISON: None. CLINICAL INDICATION: Male, 79 years old with history of Left Stone N20.1, TECHNIQUE: XR KUB view(s) obtained. FINDINGS: There is a normal bowel gas pattern. Psoas margins are normal. No organomegaly is present. There is a 1.5 cm long calcification adjacent to the left L4-5 disc level. This may be a mid left ure teral stone on previous is slightly lower than the comparison 10/10/2024. There may be a 0.9 cm infer ior pole left renal calcification. Small right pleural effusion is noted IMPRESSION: 1. Suspected 1.5 cm left ureteral stone. 2. Possible 0.9 cm inferior pole left renal stone. 3. Small right pleural effusion [facility], , 11/02/2024 7:25 AM
[2024-11-02] MEDS: IV FLUID CONTINUATION 1,000 ML IV ONE ×2 (08:04)
[2024-11-02] MEDS: LACTATED RINGERS 1,000 ML IV SCH (08:05)
[2024-11-02] MEDS: ONDANSETRON 4 MG/2 ML VIAL IVP ONE (08:09)
[2024-11-02] MEDS: DEXAMETHASONE SOD PHOSPHATE 4 MG/ML 1 ML VIAL IV ONE (08:10)
--- NOTE | 2024-11-02 08:42 | P.HPIHPCON ---
History of Present Illness H&P Date: 11/02/24 Chief Complaint: left ureteral stone This is a 79-year-old male with history of a 1.5 cm left-sided mid ureteral stone. Discussed given the size of the stone he will not be able to pass spontaneously. Option of ESWL versus ureteroscopy was discussed. He agreed to proceed with left-sided ureteroscopy with holmium laser. Aware of the risk which includes but not limited to bleeding, infection, injury to the ureter Consent for Procedure: I have explained the operation/procedure to the patient, including the risks, benefits, side effects, alternative therapies (including not receiving the proposed treatment or service), the likelihood of the patient achieving his/her goals, and potential recuperation problems for the procedure/sedation/analgesia, as well as any blood products, if indicated. I also explained to the patient the risks, benefits and side effects of the alternatives, as well as the risks related to not receiving the proposed procedure, care, treatment, or services. 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, leukemia, fx left elbow 12/23/19 History of Any Multi-Drug Resistant Organisms: None Reported Past Surgical History: Bowel Resection, Cholecystectomy, Orthopedic Surgery Additional Past Surgical History / Comment(s): bone marrow transplant 2006, spleenectomy, surgery left hip after injury, eye surgery,kayla resection r/t scar tissue causing obstruction Past Anesthesia/Blood Transfusion Reactions: No Reported Reaction Additional Past Anesthesia/Blood Transfusion Reaction / Comment(s): no hx blood transfusion Smoking Status: Never smoker - Past Family History Father Family Medical History: Cancer Mother Family Medical History: Cancer Brother(s) Family Medical History: Cancer Medications and Allergies Home Medications Medication Instructions Recorded Confirmed Type Aspirin 325 mg PO DAILY 12/24/19 10/31/24 History Multivit-Min/FA/Lycopen/Lutein 1 tab PO DAILY 12/24/19 10/31/24 History [Centrum Silver Tablet] Omeprazole [PriLOSEC] 20 mg PO QAM 12/24/19 11/02/24 History Dorzolamide/Timolol/Pf 1 drop RIGHT EYE BID 02/01/22 07/05/23 History [Dorzolamide 2%-Timolol 0.5%] Latanoprost/Pf [Latanoprost 0.005% 1 drop BOTH EYES HS 02/01/22 10/31/24 History Eye Drop] Penicillin V Potassium [Pen Vee K] 250 mg PO BID 07/05/23 11/02/24 History Brimonidine Tartrate [Alphagan P 1 drop BOTH EYES Q8H 10/31/24 10/31/24 History 0.1% Ophth Soln] Calcium Carbonate/Vitamin D3 1 each PO DAILY 10/31/24 11/02/24 History [Calcium 600 mg-D3 20 mcg (800 unit)] Carboxymethylcellulose Sodium 1 drop BOTH EYES TID 10/31/24 10/31/24 History [Refresh Tears] Allergies Allergy/AdvReac Type Severity Reaction Status Date / Time No Known Allergies Allergy Verified 11/02/24 07:28 Surgical - Exam Vital Signs Temp Pulse Resp BP Pulse Ox 98.1 F 79 16 135/72 99 11/02/24 07:27 11/02/24 07:27 11/02/24 07:27 11/02/24 07:27 11/02/24 07:27 - General no distress, no pain - Eyes normal ocular movement, no pale - ENT normal nares, normal mucosa - Respiratory normal expansion, normal respiratory effort - Abdomen Abdomen: soft, non tender - Psychiatric oriented to time, oriented to person, oriented to place Assessment and Plan Assessment: OR for left-sided ureteroscopy, holmium laser lithotripsy, stone basketing and stent insertion
[2024-11-02 10:03] VITALS: TEMP 96.9
--- NOTE | 2024-11-02 10:53 | FL ---
Fluoroscopy INDICATION: Pain FINDINGS: Fluoroscopy time: 47.8 seconds. Total dose area product (DAP) in uGy*m?, mGy*cm? (or similar): 0.81149 Images obtained: 3. Images document a ureteral procedure IMPRESSION: 1. Documentation of fluoroscopy. [facility], , 11/02/2024 10:51 AM
[2024-11-02 11:04] VITALS: BP 142/68; PULSE 68
--- NOTE | 2024-11-02 11:21 | P.OP ---
Date of Procedure: 11/02/24 Preoperative Diagnosis: Left ureteral stone Postoperative Diagnosis: Same Procedure(s) Performed: Cystoscopy, left ureteroscopy, holmium laser lithotripsy, stone basketing and stent insertion Implants: 6 [place] by 26 cm stent in the left ureter left on a string Anesthesia: KENNETH Surgeon: Tushar Fonseca Estimated Blood Loss (ml): 5 Pathology: other (Left ureteral stone) Condition: stable Disposition: PACU Indications for Procedure: This is a 79-year-old male with history of a 1.5 cm left-sided mid ureteral stone. Discussed given the size of the stone he will not be able to pass spontaneously. Option of ESWL versus ureteroscopy was discussed. He agreed to proceed with left-sided ureteroscopy with holmium laser. Aware of the risk which includes but not limited to bleeding, infection, injury to the ureter Operative Findings: Large left-sided left proximal stone Description of Procedure: Patient brought the operating room, general anesthesia was induced. He was prepped and draped in sterile fashion and placed in a dorsolithotomy position. Cystoscopy fitted through the 21 [place] sheath was inserted per urethra, cystoscopy was performed showed no abnormality within the bladder. Prostate was mildly enlarged but nonocclusive. Attention was then carried to the left ureteral orifice, a sensor wire was advanced through the scope and out of the ureteral orifice, advance the wire all the way up to the kidney. At this time a semirigid ureteroscope was inserted per urethra and advanced up the left ureteral orifice, I was unable to reach the stone using the semirigid ureteroscope. Pullback ureteroscopy was performed showed no injury to the ureter and ureteral stones. At this time an 1113 [place] access sheath was passed over the wire into the proximal ureter just distal to the stone. Next a flexible ureteroscope was inserted through the access sheath, using the holmium laser the stone was fragmented, stone fragments were removed using the stone basket. After fragmenting the stone I advanced the scope into the kidney, complete renoscopy was performed showed no stones in the kidney or injury to the kidney, the kidney was quite hydronephrotic. Pullback ureteroscopy was p erformed showed no injury to the ureter or any ureteral stone that are sizable. As the ureteroscope was withdrawn a sensor wire was advanced through. Next a ureteral stent was passed over the wire, the proximal curl was visualized on fluoroscopy and the distal curl was visualized in the cystoscope. The stent was left on a string only to the patient penis. The bladder was emptied at the end of the case. Patient tolerated procedure was taken recovery in stable condition
== END ==
LOC: OR 06:31
PROVIDERS: ATTEND Urology
DX: N20.1 Calculus of ureter (principal); K21.9 Gastro-esophageal reflux disease without esophagitis; Z90.49 Acquired absence of other specified parts of digestive tract; Z94.81 Bone marrow transplant status; Z79.82 Long term (current) use of aspirin; Z79.899 Other long term (current) drug therapy
CPT/HCPCS: 82365; 74018; 52356; J1100; J0690; J2405